=== PATIENT | male | born 1940 | race Caucasian/White ===

== ENCOUNTER 2018-05-24 12:24 | Inpatient (IN) | payer MEDICAID, MEDICARE ==
[~2018-05-24] VITALS: Ht 152.4 cm; Wt 54.0 kg
[2018-05-24 12:34] VITALS: BP_SYST 94
[2018-05-24] MEDS ORDERED: NACL 0.9% 1,000 ML IV ONE ×2 (12:45→15:45)
[2018-05-24 13:10] LABS: MEAN CORPUSCULAR VOLUME 88 fL (79.0-98.0)
[2018-05-24 13:17] LABS: BASOPHILS # (AUTO) 0.1 K/uL (0.0-0.2); BASOPHILS % (AUTO) 0.2 % (0.0-2.0); EOSINOPHILS % (AUTO) 0.1 % (0.0-4.0); HEMATOCRIT 38.6 % (36-54); LYMPHOCYTES # (AUTO) 1.6 K/uL (1.0-5.5); LYMPHOCYTES % (AUTO) 5.8 % (20.5-51.5); MEAN CORPUSCULAR HEMOGLOBIN 30 pg (27-31); MEAN CORPUSCULAR HGB CONC 34 % (32-36); MONOCYTES # (AUTO) 0.4 K/uL (0.0-1.0); MONOCYTES % (AUTO) 1.5 % (1.7-9.3); NEUTROPHILS # (AUTO) 24.8 K/uL (1.8-7.7); NEUTROPHILS % (AUTO) 92.4 % (40.0-70.0); PLATELET COUNT (AUTO) 338 K/uL (130-430); RED BLOOD CELL COUNT(AUTO) 4.37 MIL/uL (4.2-6.2); RED CELL DISTRIBUTION WIDTH 16.1 % (9.0-15.0); WHITE BLOOD COUNT (AUTO) 26.9 K/uL (4.8-10.8)
[2018-05-24 13:35] LABS: INR 1.1 (0.80-1.20); PROTHROMBIN TIME 11.2 SECS (9.5-12.5)
[2018-05-24 13:38] LABS: ANION GAP 11 (5-15); CALCIUM 9.7 mg/dL (8.4-11.0); CHLORIDE 109 mmol/L (98-107); CREATININE 1.67 mg/dL (0.55-1.30); GLUCOSE 125 mg/dL (70-99); POTASSIUM 4.8 mmol/L (3.5-5.1); SODIUM SERUM 142 mmol/L (136-145); UREA NITROGEN, BLOOD 83 mg/dL (8-21)
[2018-05-24 13:42] LABS: ALANINE AMINOTRANSFERASE 37 U/L (12-78); ALBUMIN 2.4 g/dL (3.4-4.8); ASPARTATE AMINOTRANSFERASE 26 U/L (10-37); TOTAL BILIRUBIN 1.1 mg/dL (0.0-1.0)
[2018-05-24] MEDS ORDERED: PIPERACILLIN/TAZO 3.375 GM in NS 50 ML IV ONE (15:15)
[2018-05-24] MEDS ORDERED: metroNIDAZOLE 500 mg/NS 100 ML IV ONE (15:15)
[2018-05-24] MEDS ORDERED: PIPERACILLIN/TAZOBACTAM 3.375 GM/VIAL (ZOSYN) IV ONE (16:09)
[2018-05-24 17:03] VITALS: BP_SYST 93
[2018-05-24] MEDS: metroNIDAZOLE 500 mg/NS 100 ML IV SCH ×2 (19:55→22:02)
[2018-05-24] MEDS: D5NS 1,000 ML IV SCH (19:55)
[2018-05-24 20:00] VITALS: BP_SYST 114
[2018-05-24] MEDS: PIPERACILLIN/TAZO 3.375/DEX-IS 50 ML IV SCH (23:48)
[2018-05-25 00:41] VITALS: BP_SYST 108
[2018-05-25 03:04] LABS: BILIRUBIN,URINE NEGATIVE (NEGATIVE); CLARITY/URINE CLEAR (CLEAR); COLOR,URINE YELLOW (YELLOW); GLUCOSE,URINE NEGATIVE (NEGATIVE); KETONES,URINE NEGATIVE (NEGATIVE); LEUKOCYTE ESTERASE ,URINE 2+ (NEGATIVE); NITRITE, URINE NEGATIVE (NEGATIVE); PH,URINE >=9.0 (5.0-8.0); PROTEIN URINE 1+ (NEGATIVE)
[2018-05-25 03:06] LABS: BLOOD, URINE TRACE (NEGATIVE)
[2018-05-25 03:24] LABS: BACTERIA,URINE MANY /HPF (None Seen); WBC,URINE 20-50 /HPF (0-3)
[2018-05-25 03:42] VITALS: BP_SYST 103
[2018-05-25] MEDS: D5NS 1,000 ML IV SCH ×2 (05:32→13:18)
[2018-05-25] MEDS: metroNIDAZOLE 500 mg/NS 100 ML IV SCH ×3 (05:33→22:09)
[2018-05-25] MEDS: PIPERACILLIN/TAZO 3.375/DEX-IS 50 ML IV SCH ×3 (05:33→17:28)
[2018-05-25 08:00] VITALS: BP_SYST 102
[2018-05-25 11:36] VITALS: BP_SYST 105
[2018-05-25 16:30] VITALS: BP_SYST 102
[2018-05-25 17:36] LABS: ANION GAP 8 (5-15); CALCIUM 9.1 mg/dL (8.4-11.0); CREATININE 0.88 mg/dL (0.55-1.30); GLUCOSE 119 mg/dL (70-99); POTASSIUM 3.3 mmol/L (3.5-5.1); SODIUM SERUM 151 mmol/L (136-145); UREA NITROGEN, BLOOD 57 mg/dL (8-21)
[2018-05-25 17:42] LABS: BASOPHILS % (AUTO) 0.3 % (0.0-2.0); EOSINOPHILS # (AUTO) 0.4 K/uL (0.0-0.4); HEMATOCRIT 30.3 % (36-54); HEMOGLOBIN 10.4 g/dL (14.0-18.0); LYMPHOCYTES # (AUTO) 0.7 K/uL (1.0-5.5); LYMPHOCYTES % (AUTO) 4.7 % (20.5-51.5); MEAN CORPUSCULAR HEMOGLOBIN 30 pg (27-31); MEAN CORPUSCULAR HGB CONC 34 % (32-36); MEAN CORPUSCULAR VOLUME 88 fL (79.0-98.0); MONOCYTES # (AUTO) 0.4 K/uL (0.0-1.0); MONOCYTES % (AUTO) 3.1 % (1.7-9.3); NEUTROPHILS % (AUTO) 88.9 % (40.0-70.0); PLATELET COUNT (AUTO) 244 K/uL (130-430); RED BLOOD CELL COUNT(AUTO) 3.43 MIL/uL (4.2-6.2); RED CELL DISTRIBUTION WIDTH 15.8 % (9.0-15.0); WHITE BLOOD COUNT (AUTO) 14.5 K/uL (4.8-10.8)
[2018-05-25 17:50] LABS: CHLORIDE 122 mmol/L (98-107)
[2018-05-25 18:09] LABS: ASPARTATE AMINOTRANSFERASE 17 U/L (10-37); TOTAL BILIRUBIN 0.6 mg/dL (0.0-1.0)
[2018-05-25 18:10] LABS: ALANINE AMINOTRANSFERASE 27 U/L (12-78); ALBUMIN 1.9 g/dL (3.4-4.8)
[2018-05-25] MEDS: D5W 1,000 ML IV SCH (18:43)
[2018-05-25 20:00] VITALS: BP_SYST 102
[2018-05-26] VITALS: BP_SYST 123
[2018-05-26] MEDS: PIPERACILLIN/TAZO 3.375/DEX-IS 50 ML IV SCH ×5 (00:09→23:16)
[2018-05-26] MEDS: metroNIDAZOLE 500 mg/NS 100 ML IV SCH ×3 (06:13→21:10)
[2018-05-26 06:30] LABS: BASOPHILS # (AUTO) 0.1 K/uL (0.0-0.2); BASOPHILS % (AUTO) 0.6 % (0.0-2.0); EOSINOPHILS # (AUTO) 0.9 K/uL (0.0-0.4); HEMATOCRIT 31.1 % (36-54); HEMOGLOBIN 10.5 g/dL (14.0-18.0); LYMPHOCYTES # (AUTO) 0.5 K/uL (1.0-5.5); LYMPHOCYTES % (AUTO) 4.2 % (20.5-51.5); MEAN CORPUSCULAR HEMOGLOBIN 30 pg (27-31); MEAN CORPUSCULAR HGB CONC 34 % (32-36); MEAN CORPUSCULAR VOLUME 89 fL (79.0-98.0); MONOCYTES # (AUTO) 0.6 K/uL (0.0-1.0); MONOCYTES % (AUTO) 4.9 % (1.7-9.3); NEUTROPHILS # (AUTO) 9.3 K/uL (1.8-7.7); NEUTROPHILS % (AUTO) 82.3 % (40.0-70.0); PLATELET COUNT (AUTO) 242 K/uL (130-430); RED BLOOD CELL COUNT(AUTO) 3.51 MIL/uL (4.2-6.2); RED CELL DISTRIBUTION WIDTH 16.4 % (9.0-15.0); WHITE BLOOD COUNT (AUTO) 11.4 K/uL (4.8-10.8)
[2018-05-26 07:12] LABS: ALANINE AMINOTRANSFERASE 26 U/L (12-78); ALBUMIN 1.9 g/dL (3.4-4.8); ANION GAP 7 (5-15); ASPARTATE AMINOTRANSFERASE 17 U/L (10-37); CALCIUM 9.1 mg/dL (8.4-11.0); CREATININE 0.73 mg/dL (0.55-1.30); GLUCOSE 109 mg/dL (70-99); SODIUM SERUM 150 mmol/L (136-145); TOTAL BILIRUBIN 0.5 mg/dL (0.0-1.0); UREA NITROGEN, BLOOD 37 mg/dL (8-21)
[2018-05-26 07:16] LABS: CHLORIDE 123 mmol/L (98-107); POTASSIUM 2.9 mmol/L (3.5-5.1)
[2018-05-26 08:00] VITALS: BP_SYST 114
[2018-05-26] MEDS ORDERED: POTASSIUM CHLORIDE 40 MEQ, LIDOCAINE JECT 2% PF 100 MG 75 MG in NS 250 ML IV ONE (08:45)
[2018-05-26 12:40] VITALS: BP_SYST 106
[2018-05-26 16:35] VITALS: BP_SYST 110
[2018-05-26] MEDS ORDERED: BALSAM PERU/CASTOR OIL 60 GM OINT...G. TP ONE (17:00)
[2018-05-26 20:00] VITALS: BP_SYST 124
[2018-05-26] MEDS: D5W 1,000 ML IV SCH ×2 (23:06→23:16)
[2018-05-27] VITALS: BP_SYST 122
[2018-05-27] MEDS ORDERED: VITD2000 GT (01:43)
[2018-05-27] MEDS ORDERED: METO5TAB86 GT (01:43)
[2018-05-27] MEDS ORDERED: FINA5TAB3 GT (01:43)
[2018-05-27] MEDS ORDERED: SOTA80TA GT (01:43)
[2018-05-27] MEDS ORDERED: POLY17PO4 GT (01:43)
[2018-05-27] MEDS ORDERED: LACT10SO7 GT (01:43)
[2018-05-27] MEDS ORDERED: ACET-2165 GT ×2 (01:43)
[2018-05-27] MEDS ORDERED: TAMS-11 GT (01:43)
[2018-05-27] MEDS: PIPERACILLIN/TAZO 3.375/DEX-IS 50 ML IV SCH ×3 (05:17→18:30)
[2018-05-27] MEDS: metroNIDAZOLE 500 mg/NS 100 ML IV SCH ×3 (05:44→21:58)
[2018-05-27 08:10] VITALS: BP_SYST 121
[2018-05-27] MEDS: BALSAM PERU/CASTOR OIL 60 GM OINT...G. TP SCH (10:08)
[2018-05-27 12:37] VITALS: BP_SYST 147
[2018-05-27] MEDS: D5W 1,000 ML IV SCH (14:28)
[2018-05-27 16:29] VITALS: BP_SYST 139
[2018-05-27 16:39] LABS: BASOPHILS % (AUTO) 0.5 % (0.0-2.0); EOSINOPHILS # (AUTO) 0.5 K/uL (0.0-0.4); HEMATOCRIT 31.8 % (36-54); HEMOGLOBIN 10.6 g/dL (14.0-18.0); LYMPHOCYTES # (AUTO) 1.1 K/uL (1.0-5.5); LYMPHOCYTES % (AUTO) 17.2 % (20.5-51.5); MEAN CORPUSCULAR HEMOGLOBIN 29 pg (27-31); MEAN CORPUSCULAR HGB CONC 33 % (32-36); MEAN CORPUSCULAR VOLUME 88 fL (79.0-98.0); MONOCYTES # (AUTO) 0.5 K/uL (0.0-1.0); MONOCYTES % (AUTO) 8.2 % (1.7-9.3); NEUTROPHILS # (AUTO) 4.4 K/uL (1.8-7.7); NEUTROPHILS % (AUTO) 67.1 % (40.0-70.0); PLATELET COUNT (AUTO) 232 K/uL (130-430); RED CELL DISTRIBUTION WIDTH 15.9 % (9.0-15.0); WHITE BLOOD COUNT (AUTO) 6.5 K/uL (4.8-10.8)
[2018-05-27 16:53] LABS: ANION GAP 9 (5-15); CALCIUM 8.6 mg/dL (8.4-11.0); CHLORIDE 118 mmol/L (98-107); CREATININE 0.58 mg/dL (0.55-1.30); GLUCOSE 90 mg/dL (70-99); POTASSIUM 3.2 mmol/L (3.5-5.1); SODIUM SERUM 148 mmol/L (136-145); UREA NITROGEN, BLOOD 18 mg/dL (8-21)
[2018-05-27 16:58] LABS: ALANINE AMINOTRANSFERASE 18 U/L (12-78); ASPARTATE AMINOTRANSFERASE 12 U/L (10-37); TOTAL BILIRUBIN 0.6 mg/dL (0.0-1.0)
[2018-05-27 21:26] VITALS: BP_SYST 134
[2018-05-27] MEDS: MUPIROCIN NASAL 2% OINT. NS SCH (21:59)
[2018-05-28] MEDS: PIPERACILLIN/TAZO 3.375/DEX-IS 50 ML IV SCH ×4 (00:18→17:14)
[2018-05-28] MEDS: D5W 1,000 ML IV SCH ×2 (00:20→11:13)
[2018-05-28 00:50] VITALS: BP_SYST 143
[2018-05-28] MEDS: metroNIDAZOLE 500 mg/NS 100 ML IV SCH ×2 (06:27→13:16)
[2018-05-28 09:21] VITALS: BP_SYST 123
[2018-05-28] MEDS: MUPIROCIN NASAL 2% OINT. NS SCH ×2 (09:25→21:38)
[2018-05-28] MEDS: BALSAM PERU/CASTOR OIL 60 GM OINT...G. TP SCH (09:26)
[2018-05-28 12:10] VITALS: BP_SYST 140
[2018-05-28 16:10] VITALS: BP_SYST 132
[2018-05-28 20:00] VITALS: BP_SYST 111
[2018-05-28] MEDS ORDERED: CEFEPIME 1 GM/VIAL (MAXIPIME) ONE (22:33)
[2018-05-28] MEDS: CEFEPIME 1 GM in D5W 50 ML IV SCH (22:34)
[2018-05-29] MEDS ORDERED: VANCOMYCIN HCL 1000 MG/VIAL IV ONE (00:11)
[2018-05-29 00:35] VITALS: BP_SYST 107
[2018-05-29] MEDS ORDERED: VANCOMYCIN HCL 1,000 MG in D5W 250 ML IV ONE (01:00)
[2018-05-29] MEDS: D5W 1,000 ML IV SCH ×2 (04:24→19:34)
[2018-05-29 08:00] VITALS: BP_SYST 138
[2018-05-29] MEDS: CEFEPIME 1 GM in D5W 50 ML IV SCH ×2 (09:00→20:33)
[2018-05-29] MEDS: MUPIROCIN NASAL 2% OINT. NS SCH (09:00)
[2018-05-29] MEDS: BALSAM PERU/CASTOR OIL 60 GM OINT...G. TP SCH (09:01)
[2018-05-29 12:00] VITALS: BP_SYST 142
[2018-05-29] MEDS ORDERED: POTASSIUM CHLORIDE 20 MEQ/PKT PACKET PO ONE (14:45)
[2018-05-29] MEDS ORDERED: POTASSIUM CHLORIDE 20 MEQ/PKT PACKET GT ONE (15:00)
[2018-05-29 16:00] VITALS: BP_SYST 110
[2018-05-29 20:00] VITALS: BP_SYST 118
[2018-05-29] MEDS: POTASSIUM CHLORIDE 20 MEQ/PKT PACKET GT SCH (20:33)
[2018-05-29] MEDS: MUPIROCIN 2% TOPICAL OINTMENT 22 GM TP SCH (20:34)
[2018-05-29] MEDS ORDERED: POTASSIUM CHLORIDE 20 MEQ/PKT PACKET PO SCH (21:00)
[2018-05-30 00:25] VITALS: BP_SYST 119
[2018-05-30] MEDS: VANCOMYCIN HCL 1,000 MG in NS 250 ML IV SCH (01:46)
[2018-05-30 06:40] LABS: BASOPHILS % (AUTO) 0.3 % (0.0-2.0); EOSINOPHILS # (AUTO) 0.6 K/uL (0.0-0.4); EOSINOPHILS % (AUTO) 5.7 % (0.0-4.0); HEMOGLOBIN 10.6 g/dL (14.0-18.0); LYMPHOCYTES # (AUTO) 2.3 K/uL (1.0-5.5); LYMPHOCYTES % (AUTO) 23.3 % (20.5-51.5); MEAN CORPUSCULAR HEMOGLOBIN 30 pg (27-31); MEAN CORPUSCULAR HGB CONC 34 % (32-36); MEAN CORPUSCULAR VOLUME 87 fL (79.0-98.0); MONOCYTES # (AUTO) 0.8 K/uL (0.0-1.0); MONOCYTES % (AUTO) 8.1 % (1.7-9.3); NEUTROPHILS # (AUTO) 6.2 K/uL (1.8-7.7); NEUTROPHILS % (AUTO) 62.6 % (40.0-70.0); PLATELET COUNT (AUTO) 224 K/uL (130-430); RED BLOOD CELL COUNT(AUTO) 3.55 MIL/uL (4.2-6.2); RED CELL DISTRIBUTION WIDTH 15.3 % (9.0-15.0); WHITE BLOOD COUNT (AUTO) 9.9 K/uL (4.8-10.8)
[2018-05-30 07:02] LABS: ANION GAP 8 (5-15); CALCIUM 8.3 mg/dL (8.4-11.0); CHLORIDE 106 mmol/L (98-107); CREATININE 0.44 mg/dL (0.55-1.30); GLUCOSE 115 mg/dL (70-99); POTASSIUM 3.3 mmol/L (3.5-5.1); SODIUM SERUM 137 mmol/L (136-145); UREA NITROGEN, BLOOD 13 mg/dL (8-21)
[2018-05-30 08:00] VITALS: BP_SYST 124
[2018-05-30] MEDS: POTASSIUM CHLORIDE 20 MEQ/PKT PACKET GT SCH ×2 (10:05→20:37)
[2018-05-30] MEDS: CEFEPIME 1 GM in D5W 50 ML IV SCH ×2 (10:06→20:37)
[2018-05-30] MEDS: MUPIROCIN 2% TOPICAL OINTMENT 22 GM TP SCH ×2 (10:06→20:37)
[2018-05-30] MEDS: BALSAM PERU/CASTOR OIL 60 GM OINT...G. TP SCH (10:07)
[2018-05-30 12:00] VITALS: BP_SYST 128
[2018-05-30] MEDS: D5W 1,000 ML IV SCH (13:16)
[2018-05-30 16:00] VITALS: BP_SYST 122
[2018-05-30 20:00] VITALS: BP_SYST 109
[2018-05-31] MEDS: VANCOMYCIN HCL 1,000 MG in NS 250 ML IV SCH (00:10)
[2018-05-31 00:11] VITALS: BP_SYST 124
[2018-05-31] MEDS: D5W 1,000 ML IV SCH ×2 (03:29→17:27)
[2018-05-31 06:49] LABS: ANION GAP 4 (5-15); CALCIUM 8.2 mg/dL (8.4-11.0); CHLORIDE 105 mmol/L (98-107); CREATININE 0.47 mg/dL (0.55-1.30); GLUCOSE 114 mg/dL (70-99); POTASSIUM 3.7 mmol/L (3.5-5.1); SODIUM SERUM 135 mmol/L (136-145); UREA NITROGEN, BLOOD 16 mg/dL (8-21)
[2018-05-31 08:32] VITALS: BP_SYST 123
[2018-05-31] MEDS: BALSAM PERU/CASTOR OIL 60 GM OINT...G. TP SCH (08:37)
[2018-05-31] MEDS: MUPIROCIN 2% TOPICAL OINTMENT 22 GM TP SCH ×2 (08:37→20:23)
[2018-05-31] MEDS: POTASSIUM CHLORIDE 20 MEQ/PKT PACKET GT SCH ×2 (08:37→20:22)
[2018-05-31] MEDS: CEFEPIME 1 GM in D5W 50 ML IV SCH ×2 (08:38→20:22)
[2018-05-31 12:00] VITALS: BP_SYST 129
[2018-05-31 20:00] VITALS: BP_SYST 135
[2018-06-01] MEDS: VANCOMYCIN HCL 1,000 MG in NS 250 ML IV SCH ×2 (00:19→14:39)
[2018-06-01 00:52] VITALS: BP_SYST 130
[2018-06-01 06:18] LABS: ANION GAP 6 (5-15); CALCIUM 8.5 mg/dL (8.4-11.0); CHLORIDE 103 mmol/L (98-107); CREATININE 0.46 mg/dL (0.55-1.30); GLUCOSE 127 mg/dL (70-99); POTASSIUM 3.6 mmol/L (3.5-5.1); SODIUM SERUM 135 mmol/L (136-145); UREA NITROGEN, BLOOD 16 mg/dL (8-21)
[2018-06-01] MEDS: POTASSIUM CHLORIDE 20 MEQ/PKT PACKET GT SCH ×2 (09:32→20:56)
[2018-06-01] MEDS: MUPIROCIN 2% TOPICAL OINTMENT 22 GM TP SCH ×2 (09:32→20:56)
[2018-06-01] MEDS: D5W 1,000 ML IV SCH ×2 (09:33→22:06)
[2018-06-01] MEDS: BALSAM PERU/CASTOR OIL 60 GM OINT...G. TP SCH (09:33)
[2018-06-01] MEDS: CEFEPIME 1 GM in D5W 50 ML IV SCH ×2 (11:02→20:56)
[2018-06-01 12:33] VITALS: BP_SYST 112
[2018-06-01 16:14] VITALS: BP_SYST 121
[2018-06-02 00:16] VITALS: BP_SYST 129
[2018-06-02] MEDS: VANCOMYCIN HCL 1,000 MG in NS 250 ML IV SCH (00:45)
[2018-06-02] MEDS: D5W 1,000 ML IV SCH (00:46)
[2018-06-02 08:44] VITALS: BP_SYST 132
[2018-06-02] MEDS: POTASSIUM CHLORIDE 20 MEQ/PKT PACKET GT SCH (09:43)
[2018-06-02] MEDS: CEFEPIME 1 GM in D5W 50 ML IV SCH (09:44)
[2018-06-02 12:58] VITALS: BP_SYST 122
[2018-06-02 16:48] VITALS: BP_SYST 139
[2018-06-02] MEDS: BALSAM PERU/CASTOR OIL 60 GM OINT...G. TP SCH (18:00)
[2018-06-02 18:48] VITALS: BP_SYST 139
== END 2018-06-02 19:38 | DRG 720 ==
LOC: SED 12:24 → STU 16:47 → SMU 05-30 15:29
PROVIDERS: ADMIT Internal Medicine Hospice and Palliative Medicine; ATTEND Internal Medicine Hospice and Palliative Medicine
DX: A41.9 Sepsis, unspecified organism (principal); N17.0 Acute kidney failure with tubular necrosis; E43 Unspecified severe protein-calorie malnutrition; E87.0 Hyperosmolality and hypernatremia; N39.0 Urinary tract infection, site not specified; I48.91 Unspecified atrial fibrillation; E87.6 Hypokalemia; K21.9 Gastro-esophageal reflux disease without esophagitis; I10 Essential (primary) hypertension; F79 Unspecified intellectual disabilities; G80.9 Cerebral palsy, unspecified; Z22.322 Carrier or suspected carrier of Methicillin resistant Staphylococcus aureus; Z74.01 Bed confinement status; Z68.23 Body mass index [BMI] 23.0-23.9, adult; Z79.2 Long term (current) use of antibiotics; Z79.899 Other long term (current) drug therapy; Z93.1 Gastrostomy status; Z79.01 Long term (current) use of anticoagulants; Z93.2 Ileostomy status
CPT/HCPCS: 36415; 71045; 80048; 80053; 80202-TC; 81000-TC; 83605; 83735-TC; 83880; 84484; 85025; 85610-TC; 85730-TC; 87040-TC; 87081; 87086; 93005; 96361; 96365; 96367; 99285; A5061; A9547; J0692; J2543; J3370; J3480; J3490; J7030; J7042; J7050; J7060

== ENCOUNTER 2018-06-12 01:38 | Inpatient (IN) | payer MEDICAID, MEDICARE ==
[~2018-06-12] VITALS: Ht 152.4 cm; Wt 49.9 kg
[~2018-06-12 01:38] MED LIST: ACET-2165 GT; FINA5TAB3 GT; LACT10SO7 GT; METO5TAB86 GT; POLY17PO4 GT; SOTA80TA GT; TAMS-11 GT; VITD2000 GT
[2018-06-12] MEDS ORDERED: NACL 0.9% 1,000 ML IV ONE (01:44)
[2018-06-12] MEDS ORDERED: NS 1000 ML IV.SOLN IV ONE (01:45)
[2018-06-12 01:46] VITALS: BP_SYST 121
[2018-06-12 02:13] LABS: BASOPHILS # (AUTO) 0.1 K/uL (0.0-0.2); BASOPHILS % (AUTO) 0.6 % (0.0-2.0); EOSINOPHILS # (AUTO) 0.7 K/uL (0.0-0.4); EOSINOPHILS % (AUTO) 8.7 % (0.0-4.0); HEMATOCRIT 31.8 % (36-54); HEMOGLOBIN 10.8 g/dL (14.0-18.0); LYMPHOCYTES % (AUTO) 12.4 % (20.5-51.5); MEAN CORPUSCULAR HEMOGLOBIN 30 pg (27-31); MEAN CORPUSCULAR HGB CONC 34 % (32-36); MEAN CORPUSCULAR VOLUME 89 fL (79.0-98.0); MONOCYTES # (AUTO) 0.8 K/uL (0.0-1.0); MONOCYTES % (AUTO) 9.6 % (1.7-9.3); NEUTROPHILS # (AUTO) 5.8 K/uL (1.8-7.7); NEUTROPHILS % (AUTO) 68.7 % (40.0-70.0); PLATELET COUNT (AUTO) 234 K/uL (130-430); RED CELL DISTRIBUTION WIDTH 16.2 % (9.0-15.0); WHITE BLOOD COUNT (AUTO) 8.4 K/uL (4.8-10.8)
[2018-06-12 02:38] LABS: ANION GAP 8 (5-15); CALCIUM 9.6 mg/dL (8.4-11.0); CHLORIDE 104 mmol/L (98-107); CREATININE 0.55 mg/dL (0.55-1.30); GLUCOSE 118 mg/dL (70-99); POTASSIUM 3.9 mmol/L (3.5-5.1); SODIUM SERUM 137 mmol/L (136-145); UREA NITROGEN, BLOOD 51 mg/dL (8-21)
[2018-06-12 02:47] LABS: PROTHROMBIN TIME 10.3 SECS (9.5-12.5)
[2018-06-12 02:56] LABS: ALANINE AMINOTRANSFERASE 33 U/L (12-78); ALBUMIN 2.1 g/dL (3.4-4.8); ASPARTATE AMINOTRANSFERASE 23 U/L (10-37); LIPASE 100 U/L (73-393); TOTAL BILIRUBIN 0.3 mg/dL (0.0-1.0)
[2018-06-12 03:04] LABS: BILIRUBIN,URINE NEGATIVE (NEGATIVE); BLOOD, URINE 2+ (NEGATIVE); CLARITY/URINE CLOUDY (CLEAR); COLOR,URINE YELLOW (YELLOW); GLUCOSE,URINE NEGATIVE (NEGATIVE); KETONES,URINE NEGATIVE (NEGATIVE); LEUKOCYTE ESTERASE ,URINE 3+ (NEGATIVE); NITRITE, URINE NEGATIVE (NEGATIVE); PROTEIN URINE 1+ (NEGATIVE); UROBILINOGEN,URINE 0.2 (0.2-1.0)
[2018-06-12 03:13] LABS: BACTERIA,URINE MODERATE /HPF (None Seen); MUCUS,URINE None Seen /LPF (None Seen); WBC,URINE >100 /HPF (0-3); YEAST,URINE Moderate /HPF (None Seen)
[2018-06-12 03:14] LABS: COARSE GRANULAR CASTS,URINE 0-10 /LPF (None Seen)
[2018-06-12 07:08] VITALS: BP_SYST 144
[2018-06-12 08:04] VITALS: BP_SYST 116
[2018-06-12] MEDS: CEFEPIME 1 GM in D5W 50 ML IV SCH ×2 (09:49→21:37)
[2018-06-12] MEDS: KCL 20 mEq in D5/0.45NS 1000mL 1,000 ML IV SCH ×2 (09:49→18:50)
[2018-06-12 12:00] VITALS: BP_SYST 118
[2018-06-12] MEDS ORDERED: ACETAMINOPHEN 325 MG TABLET GT PRN (14:30)
[2018-06-12 16:55] VITALS: BP_SYST 113
[2018-06-12 19:30] VITALS: BP_SYST 135
[2018-06-12] MEDS: ENOXAPARIN SODIUM 30 MG/0.3 ML SYRINGE SUBCUT SCH (21:35)
[2018-06-12] MEDS: CHOLECALCIFEROL (VITAMIN D3) 2,000 UNIT TABLET GT SCH (21:37)
[2018-06-12] MEDS: SOTALOL HCL 80 MG TABLET GT SCH (21:38)
[2018-06-13 00:03] VITALS: BP_SYST 112
[2018-06-13] MEDS: KCL 20 mEq in D5/0.45NS 1000mL 1,000 ML IV SCH ×2 (05:44→14:45)
[2018-06-13 06:57] LABS: BASOPHILS # (AUTO) 0.1 K/uL (0.0-0.2); BASOPHILS % (AUTO) 0.9 % (0.0-2.0); EOSINOPHILS # (AUTO) 0.4 K/uL (0.0-0.4); EOSINOPHILS % (AUTO) 7.8 % (0.0-4.0); HEMATOCRIT 26.9 % (36-54); HEMOGLOBIN 9.1 g/dL (14.0-18.0); LYMPHOCYTES # (AUTO) 1.5 K/uL (1.0-5.5); LYMPHOCYTES % (AUTO) 26.1 % (20.5-51.5); MEAN CORPUSCULAR HEMOGLOBIN 30 pg (27-31); MEAN CORPUSCULAR HGB CONC 34 % (32-36); MEAN CORPUSCULAR VOLUME 89 fL (79.0-98.0); MONOCYTES # (AUTO) 0.7 K/uL (0.0-1.0); MONOCYTES % (AUTO) 11.9 % (1.7-9.3); NEUTROPHILS # (AUTO) 2.9 K/uL (1.8-7.7); NEUTROPHILS % (AUTO) 53.3 % (40.0-70.0); PLATELET COUNT (AUTO) 200 K/uL (130-430); RED BLOOD CELL COUNT(AUTO) 3.02 MIL/uL (4.2-6.2); RED CELL DISTRIBUTION WIDTH 15.6 % (9.0-15.0)
[2018-06-13 07:09] LABS: ANION GAP 6 (5-15); CHLORIDE 108 mmol/L (98-107); CREATININE 0.38 mg/dL (0.55-1.30); GLUCOSE 109 mg/dL (70-99); POTASSIUM 3.9 mmol/L (3.5-5.1); SODIUM SERUM 138 mmol/L (136-145); UREA NITROGEN, BLOOD 23 mg/dL (8-21)
[2018-06-13 07:30] LABS: WHITE BLOOD COUNT (AUTO) 5.6 K/uL (4.8-10.8)
[2018-06-13 08:00] VITALS: BP_SYST 110
[2018-06-13] MEDS: SOTALOL HCL 80 MG TABLET GT SCH ×2 (09:00→21:03)
[2018-06-13] MEDS: CHOLECALCIFEROL (VITAMIN D3) 2,000 UNIT TABLET GT SCH ×2 (09:29→21:03)
[2018-06-13] MEDS: POLYETHYLENE GLYCOL 3350, 17 GM/ POWD.PACK GT SCH (09:29)
[2018-06-13] MEDS: FINASTERIDE 5 MG TABLET (PROSCAR) GT SCH (09:30)
[2018-06-13] MEDS: ACETAMINOPHEN 325 MG TABLET GT SCH (09:30)
[2018-06-13] MEDS: CEFEPIME 1 GM in D5W 50 ML IV SCH ×2 (09:32→21:03)
[2018-06-13 12:41] VITALS: BP_SYST 119
[2018-06-13 16:19] VITALS: BP_SYST 110
[2018-06-13 19:30] VITALS: BP_SYST 126
[2018-06-13] MEDS: ENOXAPARIN SODIUM 30 MG/0.3 ML SYRINGE SUBCUT SCH (21:02)
[2018-06-14] VITALS: BP_SYST 115
[2018-06-14 07:12] LABS: BASOPHILS # (AUTO) 0.1 K/uL (0.0-0.2); EOSINOPHILS # (AUTO) 0.5 K/uL (0.0-0.4); EOSINOPHILS % (AUTO) 8.4 % (0.0-4.0); HEMATOCRIT 27.5 % (36-54); HEMOGLOBIN 9.1 g/dL (14.0-18.0); LYMPHOCYTES # (AUTO) 1.6 K/uL (1.0-5.5); LYMPHOCYTES % (AUTO) 28.7 % (20.5-51.5); MEAN CORPUSCULAR HEMOGLOBIN 29 pg (27-31); MEAN CORPUSCULAR HGB CONC 33 % (32-36); MEAN CORPUSCULAR VOLUME 89 fL (79.0-98.0); MONOCYTES # (AUTO) 0.6 K/uL (0.0-1.0); NEUTROPHILS # (AUTO) 2.7 K/uL (1.8-7.7); NEUTROPHILS % (AUTO) 49.8 % (40.0-70.0); PLATELET COUNT (AUTO) 222 K/uL (130-430); RED BLOOD CELL COUNT(AUTO) 3.09 MIL/uL (4.2-6.2); RED CELL DISTRIBUTION WIDTH 15.8 % (9.0-15.0); WHITE BLOOD COUNT (AUTO) 5.5 K/uL (4.8-10.8)
[2018-06-14 07:33] LABS: ANION GAP 6 (5-15); CALCIUM 8.8 mg/dL (8.4-11.0); CHLORIDE 104 mmol/L (98-107); CREATININE 0.32 mg/dL (0.55-1.30); GLUCOSE 103 mg/dL (70-99); POTASSIUM 4.1 mmol/L (3.5-5.1); SODIUM SERUM 135 mmol/L (136-145); UREA NITROGEN, BLOOD 17 mg/dL (8-21)
[2018-06-14 08:00] VITALS: BP_SYST 110
[2018-06-14] MEDS: ACETAMINOPHEN 325 MG TABLET GT SCH (08:36)
[2018-06-14] MEDS: CHOLECALCIFEROL (VITAMIN D3) 2,000 UNIT TABLET GT SCH ×2 (08:36→21:00)
[2018-06-14] MEDS: FINASTERIDE 5 MG TABLET (PROSCAR) GT SCH (08:36)
[2018-06-14] MEDS: POLYETHYLENE GLYCOL 3350, 17 GM/ POWD.PACK GT SCH (08:36)
[2018-06-14] MEDS: CEFEPIME 1 GM in D5W 50 ML IV SCH ×2 (08:37→21:00)
[2018-06-14] MEDS: SOTALOL HCL 80 MG TABLET GT SCH ×2 (08:37→21:00)
[2018-06-14 09:52] LABS: BASOPHILS % (AUTO) 2.1 % (0.0-2.0)
[2018-06-14] MEDS: KCL 20 mEq in D5/0.45NS 1000mL 1,000 ML IV SCH (11:00)
[2018-06-14 13:01] VITALS: BP_SYST 144
[2018-06-14 16:42] VITALS: BP_SYST 125
[2018-06-14 19:35] VITALS: BP_SYST 119
[2018-06-14] MEDS: ENOXAPARIN SODIUM 30 MG/0.3 ML SYRINGE SUBCUT SCH (21:02)
[2018-06-15 00:22] VITALS: BP_SYST 117
[2018-06-15] MEDS: KCL 20 mEq in D5/0.45NS 1000mL 1,000 ML IV SCH ×2 (04:43→18:19)
[2018-06-15 08:00] VITALS: BP_SYST 124
[2018-06-15] MEDS: CEFEPIME 1 GM in D5W 50 ML IV SCH ×2 (10:26→21:31)
[2018-06-15] MEDS: FINASTERIDE 5 MG TABLET (PROSCAR) GT SCH (10:26)
[2018-06-15] MEDS: SOTALOL HCL 80 MG TABLET GT SCH ×2 (10:27→21:35)
[2018-06-15] MEDS: POLYETHYLENE GLYCOL 3350, 17 GM/ POWD.PACK GT SCH (10:28)
[2018-06-15] MEDS: ACETAMINOPHEN 325 MG TABLET GT SCH (10:28)
[2018-06-15] MEDS: CHOLECALCIFEROL (VITAMIN D3) 2,000 UNIT TABLET GT SCH ×2 (10:29→21:36)
[2018-06-15 12:00] VITALS: BP_SYST 117
[2018-06-15 16:21] VITALS: BP_SYST 117
[2018-06-15] MEDS: FLUCONAZOLE 100 mg/ NS 50 ML IV SCH (19:48)
[2018-06-15 20:00] VITALS: BP_SYST 158
[2018-06-15] MEDS: ENOXAPARIN SODIUM 30 MG/0.3 ML SYRINGE SUBCUT SCH (21:34)
[2018-06-15] MEDS: ACYCLOVIR 400 MG TABLET PO SCH (21:35)
[2018-06-16 00:38] VITALS: BP_SYST 135
[2018-06-16 07:01] LABS: BASOPHILS # (AUTO) 0.1 K/uL (0.0-0.2); BASOPHILS % (AUTO) 0.9 % (0.0-2.0); EOSINOPHILS # (AUTO) 0.6 K/uL (0.0-0.4); EOSINOPHILS % (AUTO) 6.6 % (0.0-4.0); HEMATOCRIT 28.7 % (36-54); HEMOGLOBIN 9.9 g/dL (14.0-18.0); LYMPHOCYTES # (AUTO) 1.8 K/uL (1.0-5.5); LYMPHOCYTES % (AUTO) 20.5 % (20.5-51.5); MEAN CORPUSCULAR HEMOGLOBIN 30 pg (27-31); MEAN CORPUSCULAR HGB CONC 34 % (32-36); MEAN CORPUSCULAR VOLUME 88 fL (79.0-98.0); MONOCYTES # (AUTO) 0.7 K/uL (0.0-1.0); MONOCYTES % (AUTO) 7.9 % (1.7-9.3); NEUTROPHILS # (AUTO) 5.5 K/uL (1.8-7.7); NEUTROPHILS % (AUTO) 64.1 % (40.0-70.0); PLATELET COUNT (AUTO) 242 K/uL (130-430); RED BLOOD CELL COUNT(AUTO) 3.26 MIL/uL (4.2-6.2); RED CELL DISTRIBUTION WIDTH 15.6 % (9.0-15.0); WHITE BLOOD COUNT (AUTO) 8.7 K/uL (4.8-10.8)
[2018-06-16 07:16] LABS: ANION GAP 3 (5-15); CALCIUM 9.1 mg/dL (8.4-11.0); CHLORIDE 101 mmol/L (98-107); CREATININE 0.37 mg/dL (0.55-1.30); GLUCOSE 117 mg/dL (70-99); SODIUM SERUM 132 mmol/L (136-145); UREA NITROGEN, BLOOD 14 mg/dL (8-21)
[2018-06-16 08:06] VITALS: BP_SYST 144
[2018-06-16] MEDS ORDERED: BALSAM PERU/CASTOR OIL 60 GM OINT...G. TP SCH (09:00)
[2018-06-16] MEDS: CEFEPIME 1 GM in D5W 50 ML IV SCH (09:59)
[2018-06-16] MEDS: FINASTERIDE 5 MG TABLET (PROSCAR) GT SCH (10:00)
[2018-06-16] MEDS: CHOLECALCIFEROL (VITAMIN D3) 2,000 UNIT TABLET GT SCH (10:00)
[2018-06-16] MEDS: POLYETHYLENE GLYCOL 3350, 17 GM/ POWD.PACK GT SCH (10:00)
[2018-06-16] MEDS: ACYCLOVIR 400 MG TABLET PO SCH (10:00)
[2018-06-16] MEDS: ACETAMINOPHEN 325 MG TABLET GT SCH (10:01)
[2018-06-16] MEDS: SOTALOL HCL 80 MG TABLET GT SCH (10:01)
[2018-06-16] MEDS: KCL 20 mEq in D5/0.45NS 1000mL 1,000 ML IV SCH (10:02)
[2018-06-16 12:53] VITALS: BP_SYST 108
[2018-06-16 16:37] VITALS: BP_SYST 121
[2018-06-16 17:51] VITALS: BP_SYST 121
[2018-06-16] MEDS: FLUCONAZOLE 100 mg/ NS 50 ML IV SCH (18:20)
== END 2018-06-16 19:45 | DRG 501 ==
LOC: SED 01:38 → STU 05:26
PROVIDERS: ADMIT Family Medicine; ATTEND Family Medicine
DX: B37.49 Other urogenital candidiasis (principal); J69.0 Pneumonitis due to inhalation of food and vomit; E43 Unspecified severe protein-calorie malnutrition; J44.9 Chronic obstructive pulmonary disease, unspecified; E86.0 Dehydration; I48.91 Unspecified atrial fibrillation; F03.90 Unspecified dementia, unspecified severity, without behavioral disturbance, psychotic disturbance, mood disturbance, and anxiety; N31.9 Neuromuscular dysfunction of bladder, unspecified; F79 Unspecified intellectual disabilities; R09.02 Hypoxemia; K21.9 Gastro-esophageal reflux disease without esophagitis; D64.9 Anemia, unspecified; I10 Essential (primary) hypertension; B00.2 Herpesviral gingivostomatitis and pharyngotonsillitis; N40.0 Benign prostatic hyperplasia without lower urinary tract symptoms; Z87.440 Personal history of urinary (tract) infections; Z68.21 Body mass index [BMI] 21.0-21.9, adult; Z79.899 Other long term (current) drug therapy; Z93.1 Gastrostomy status
CPT/HCPCS: 36415; 71045; 80048; 80053; 81000-TC; 82550-TC; 83605; 83690-TC; 84484; 85025; 85610-TC; 85730-TC; 87040-TC; 87081; 87086; 93005; 96360; 96361; 99285; A5061; J0692; J1450; J1650; J7030; J7060

== ENCOUNTER 2018-06-27 22:14 | Inpatient (IN) | payer MEDICAID, MEDICARE ==
[~2018-06-27] VITALS: Ht 175.3 cm; Wt 52.6 kg
[2018-06-27 22:15] VITALS: BP_SYST 93
--- NOTE | 2018-06-27 22:15 | NUR ---
Placed in room 02 . Placed on car sweeper, blood pressure machine and pulse oximeter. To gown for exam. Side rails up. Report given to BARRON Trevino.
--- NOTE | 2018-06-27 22:15 | NUR ---
Patient brought to ED via [facility] [address] [facility]. Facility contacted EMS due to desaturation. SpO2 80% on scene. Patient placed on non-rebreather en route to facility. Patient non-verbal, tracks with eyes. SpO2 in ED 95% on 15L via non-rebreather. Presents with 24g to left forearm, G-tube, illeostomy and ayala catheter in place. Multiple wounds noted to sacrum. Muscle contractures to x 4 extremities. Patient skin hot to touch. Audible rales noted. ABD non distended. Will continue to monitor.
--- NOTE | 2018-06-27 22:18 | NUR ---
SHANTI Yancey at bedside examining patient.
--- NOTE | 2018-06-27 22:29 | NUR ---
Patient's code status is FULL CODE- Physician Orders for Life-Sustaining Treatment paperwork placed in chart.
[2018-06-27] MEDS ORDERED: NACL 0.9% 1,000 ML IV ONE ×3 (22:30→23:45)
--- NOTE | 2018-06-27 22:35 | NUR ---
#22 gauge angiocath placed to right wrist. Use of asceptic technique. Opsite placed over site. Blood return noted. Blood for lab drawn from site. Flushed with 10 cc of normal saline. No evidence of infiltration noted. Patient tolerated well.
[2018-06-27] MEDS ORDERED: ACYC400T PO (22:46)
[2018-06-27] MEDS ORDERED: DIF100 IVPB (22:46)
[2018-06-27] MEDS ORDERED: CEFE1PIG3 IV (22:46)
--- NOTE | 2018-06-27 22:47 | NUR ---
Medication reconciliation completed with information provided by Yinka Granger. Any prior medication reconciliation on file was reviewed and corrected.
--- NOTE | 2018-06-27 22:54 | NUR ---
Radiology at bedside for CXR.
[2018-06-27 22:57] LABS: HEMATOCRIT 41.9 % (36-54); MEAN CORPUSCULAR HEMOGLOBIN 30 pg (27-31); MEAN CORPUSCULAR HGB CONC 34 % (32-36); MEAN CORPUSCULAR VOLUME 89 fL (79.0-98.0); PLATELET COUNT (AUTO) 452 K/uL (130-430); RED BLOOD CELL COUNT(AUTO) 4.74 MIL/uL (4.2-6.2); RED CELL DISTRIBUTION WIDTH 16.2 % (9.0-15.0); WHITE BLOOD COUNT (AUTO) 25.4 K/uL (4.8-10.8)
[2018-06-27] MEDS ORDERED: DILTIAZEM HCL 25 MG/5 ML VIAL IVP ONE (23:00)
--- NOTE | 2018-06-27 23:00 | NUR ---
#16 FR Ayala catheter with use of sterile technique. Immediate return of 0 cc urine noted. Bedside drainage bag placed below level of bladder. Pt tolerated procedure well. Patient arrived with ayala in place, changed due to standard of practice prior to admission. Patient unable to toilet self.
[2018-06-27 23:01] LABS: ANION GAP 8 (5-15); CREATININE 1.08 mg/dL (0.55-1.30); GLUCOSE 188 mg/dL (70-99); SODIUM SERUM 152 mmol/L (136-145)
[2018-06-27 23:07] LABS: ALANINE AMINOTRANSFERASE 31 U/L (12-78); ALBUMIN 2.7 g/dL (3.4-4.8); ASPARTATE AMINOTRANSFERASE 14 U/L (10-37); TOTAL BILIRUBIN 0.3 mg/dL (0.0-1.0)
[2018-06-27] MEDS ORDERED: VANCOMYCIN HCL 1,000 MG in NS 250 ML IV ONE (23:15)
[2018-06-27] MEDS ORDERED: PIPERACILLIN/TAZO 3.375 GM in NS 50 ML IV ONE (23:15)
[2018-06-27 23:27] LABS: CHLORIDE 122 mmol/L (98-107); UREA NITROGEN, BLOOD 140 mg/dL (8-21)
[2018-06-27] MEDS ORDERED: ACETAMINOPHEN 650 MG SUPP.RECT RC ONE (23:30)
--- NOTE | 2018-06-27 23:30 | NUR ---
ED MD Iverson at bedside for medical evaluation.
[2018-06-27 23:32] LABS: BAND % (MANUAL) 1 % (0-6); BASOPHILS % (MANUAL) 0 % (0-2); EOSINOPHILS % (MANUAL) 0 % (0-7); LYMPHOCYTES % (MANUAL) 4 % (20-46); MONOCYTES % (MANUAL) 2 % (0-11)
[2018-06-27] MEDS ORDERED: PIPERACILLIN/TAZOBACTAM 3.375 GM/VIAL (ZOSYN) IV ONE (23:32)
[2018-06-27] MEDS ORDERED: VANCOMYCIN HCL 1000 MG/VIAL IV ONE (23:32)
--- NOTE | 2018-06-27 23:44 | NUR ---
ABX administered. Sepsis documentation present in physician charting. Sepsis protocol initiated while in ED.
[2018-06-27] MEDS ORDERED: NACL 0.9% 1,000 ML IV SCH (23:59)
[2018-06-28] VITALS (25 sets, daily range): BP systolic 84–118
[2018-06-28] MEDS ORDERED: MORPHINE 2 MG/ML INJ. SYRINGE IVP PRN
[2018-06-28] MEDS ORDERED: NOREPINEPHRINE BITARTRATE 4 MG in NS 246 ML IV ONE ×2
[2018-06-28] MEDS ORDERED: ACETAMINOPHEN 325 MG TABLET PO PRN
[2018-06-28] MEDS ORDERED: IPRATROPIUM/ALBUTEROL SULFATE 3 ML AMPUL.NEB INH PRN
[2018-06-28] MEDS ORDERED: ONDANSETRON HCL 4 MG/2 ML VIAL IVP PRN
--- NOTE | 2018-06-28 | NUR ---
RT at bedside to obtain blood gas.
[2018-06-28] MEDS ORDERED: DILTIAZEM HCL 25 MG/5 ML VIAL IVP ONE ×2 (00:15)
[2018-06-28] MEDS: DILTIAZEM HCL 30 MG TABLET PO SCH ×3 (00:15→15:48)
--- NOTE | 2018-06-28 00:20 | NUR ---
PUT PT ON BIPAP AT AROUND 2250 SETTINGS: 10/21, BUR 20, PS 6, FIO2 100% PER DR ALICIA ORDER. AT AROUND 2355 TITRATED PT FIO2 TO 80% AND KELVIN ABG. PER ABG RESULTS AFTER CHANGES AROUND 0005 . (SEE LAB REPORT) SWITCHED PT FIO2 AGAIN TO 40% NOW PT GOT TRANSPORTED TO ICU 2. WILL CONTINUE TO MONITOR PT.
[2018-06-28 00:22] LABS: INR 1.1 (0.80-1.20); PROTHROMBIN TIME 10.9 SECS (9.5-12.5)
--- NOTE | 2018-06-28 01:00 | NUR ---
Patient will be admitted to care of Dr. Shankar. Admitted to ICU. Will go to room 2. Belongings list completed. Summary report printed. Report will be given at bedside. Transfer to ICU via ACLS protocol. Licensed nurse present. IV present no signs or symptoms of infiltration.
--- NOTE | 2018-06-28 01:05 | NUR ---
ARRIVAL TO ICU PT ARRIVES TO ICU. NO SIGNS OF DISTRESS, NO APPARENT PAIN OR DISCOMFORT. PLACED ON BIPAP 12/6, BUR 20, FIO2 40%. ADMISSION TO BE COMPLETED.
[2018-06-28 01:08] LABS: BILIRUBIN,URINE NEGATIVE (NEGATIVE); BLOOD, URINE 1+ (NEGATIVE); CLARITY/URINE CLEAR (CLEAR); COLOR,URINE YELLOW (YELLOW); GLUCOSE,URINE NEGATIVE (NEGATIVE); KETONES,URINE NEGATIVE (NEGATIVE); LEUKOCYTE ESTERASE ,URINE 1+ (NEGATIVE); NITRITE, URINE NEGATIVE (NEGATIVE); PH,URINE 5.5 (5.0-8.0); PROTEIN URINE TRACE (NEGATIVE); UROBILINOGEN,URINE 0.2 (0.2-1.0)
[2018-06-28 01:24] LABS: BACTERIA,URINE MODERATE /HPF (None Seen); FINE GRANULAR CASTS,URINE 0-10 /LPF (None Seen); MUCUS,URINE None Seen /LPF (None Seen)
[2018-06-28] MEDS: IPRATROPIUM/ALBUTEROL SULFATE 3 ML AMPUL.NEB INH SCH ×4 (01:27→18:38)
[2018-06-28] MEDS ORDERED: PIPERACILLIN/TAZOBACTAM 3.375 GM/VIAL (ZOSYN) IV ONE (05:14)
[2018-06-28] MEDS: PIPERACILLIN/TAZO 3.375 GM in NS 50 ML IV SCH ×3 (05:24→18:09)
--- NOTE | 2018-06-28 07:01 | NUR ---
Consult MD: Nephro. Dr. Jerez called (dr. alicea match up person) spoke to marylou dialed [phone] Shankar
[2018-06-28 07:24] LABS: AMYLASE 57 U/L (0-100); ANION GAP 6 (5-15); CALCIUM 10.4 mg/dL (8.4-11.0); CREATININE 0.93 mg/dL (0.55-1.30); FREE T4 (FREE THYROXINE) 0.7 ng/dL (0.6-1.6); GLUCOSE 143 mg/dL (70-99); LIPASE 62 U/L (73-393); PHOSPHORUS 2.1 mg/dL (2.7-4.5); POTASSIUM 3.7 mmol/L (3.5-5.1); SODIUM SERUM 155 mmol/L (136-145); THYROID STIMULATING HORMONE 0.18 uIu/mL (0.34-4.82)
--- NOTE | 2018-06-28 07:27 | NUR ---
CLOSING NOTE PT IN BED, AWAKE, OBTUNDED. NO SIGNS OF DISTRESS, NO APPARENT PAIN OR DISCOMFORT. NO ACUTE CHANGES OVERNIGHT. CARE TO CONTINUE TO NEXT SHIFT.
--- NOTE | 2018-06-28 07:30 | NUR ---
OPENING NOTE PATIENT REPORT RECEIVED FROM FORM TAMPER NURSEKALYANI. PATIENT RESTING COMFORTABLY, NO INDICATIONS OF PAIN, NO NOTABLE SIGNS OF DISTRESS AT THIS TIME. PATIENT ON BIPAP 12/6 FI02 40% AND BACK UP RATE AT 20. PATIENT IS SINUS TACHY ON THE MONITOR WITH PAC'S. PATIENT HAS IVF RUNNING AT 60ML/HR. PATIENT HAS TAMAYO CATHETER DRAINING TO GRAVITY. PATIENT REPOSITIONED UPON PILLOW SUPPORT. PATIENT TO HAVE PICC LINE PLACED TODAY. PATIENT HAS ILEOSTOMY. PATIENT IS NON VERBAL, AND WILL OPEN EYE BUT NOT FOLLOW WITH MOVEMENT. PATIENT HAS SCDS BILATERALLY FOR DVT PROPHYLAXIS. WILL CONTINUE TO FOLLOW UP AND MONITOR PATIENT FOR CHANGES IN STATUS.
[2018-06-28 07:38] LABS: CHLORIDE 130 mmol/L (98-107); UREA NITROGEN, BLOOD 113 mg/dL (8-21)
--- NOTE | 2018-06-28 08:06 | NUR ---
Nutrition Update Osman Scale 10 noted. Pt admitted for pneumonia Diet: regular diet BMI: 17.1 kg/m2 RD to follow per nutrition care standards.
[2018-06-28 08:29] LABS: HEMATOCRIT 34.6 % (36-54); HEMOGLOBIN 11.5 g/dL (14.0-18.0); MEAN CORPUSCULAR HEMOGLOBIN 30 pg (27-31); MEAN CORPUSCULAR HGB CONC 33 % (32-36); MEAN CORPUSCULAR VOLUME 91 fL (79.0-98.0); PLATELET COUNT (AUTO) 314 K/uL (130-430); RED BLOOD CELL COUNT(AUTO) 3.82 MIL/uL (4.2-6.2); RED CELL DISTRIBUTION WIDTH 16.4 % (9.0-15.0); WHITE BLOOD COUNT (AUTO) 26.5 K/uL (4.8-10.8)
[2018-06-28 08:36] LABS: BAND % (MANUAL) 17 % (0-6); BASOPHILS % (MANUAL) 0 % (0-2); EOSINOPHILS % (MANUAL) 1 % (0-7); LYMPHOCYTES % (MANUAL) 2 % (20-46); MONOCYTES % (MANUAL) 4 % (0-11)
--- NOTE | 2018-06-28 08:55 | NUR ---
NOTE PICC LINE NURSELIBRADO, CALLED VIA PHONE, WILL PROCEED WITH CONSENT PROCEDURE.
[2018-06-28] MEDS: SOTALOL HCL 80 MG TABLET GT SCH ×2 (09:00→21:00)
--- NOTE | 2018-06-28 09:00 | NUR ---
NOTE CALLED FAWAD CARTER AT [phone] FOR CONSENT. AWAITING RETURN CALL.
[2018-06-28] MEDS: ACYCLOVIR 400 MG TABLET PO SCH (09:05)
[2018-06-28] MEDS: DOCUSATE SODIUM 100 MG CAPSULE PO SCH ×2 (09:05→21:09)
[2018-06-28] MEDS: FLUCONAZOLE 100 MG TABLET (DIFLUCAN) GT SCH (09:05)
[2018-06-28] MEDS: CHOLECALCIFEROL (VITAMIN D3) 2,000 UNIT TABLET GT SCH ×2 (09:05→21:10)
[2018-06-28] MEDS: FINASTERIDE 5 MG TABLET (PROSCAR) GT SCH (09:06)
[2018-06-28] MEDS: D5W 1,000 ML IV SCH ×2 (09:10→18:09)
--- NOTE | 2018-06-28 09:15 | NUR ---
NOTE DR. JAMISON SIGNED CONSENT FOR PICC PLACEMENT, MEDICALLY NEEDED. WILL INFORM FAWAD UPON RETURN CALL.
--- NOTE | 2018-06-28 09:15 | NUR ---
SHAHEEN JAMISON AT BEDSIDE TO EVALUATE PATIENT. ABG REVIEWED WITH MD. WILL FOLLOW UP REGARDING ORDERS.
--- NOTE | 2018-06-28 09:15 | NUR ---
ARTUR SIDDIQUI AT BEDSIDE, MADE AWARE OF CRITICAL VALUES. SHE WILL MAKE CHANGES NECESSARY. WILL FOLLOW UP REGARDING ORDERS.
--- NOTE | 2018-06-28 09:42 | NUR ---
PICC PICC NURSE AT BEDSIDE, TIME OUT PROCEDURE PERFORMED BY MYSELF AND BARRON PAVON.
--- NOTE | 2018-06-28 09:46 | NUR ---
NOTE FAWAD CARTER RETURNED CALL, INFORMED OF PICC PLACEMENT AND OKAY BY PHYSICIAN DUE TO MEDICALLY NECESSITY.
[2018-06-28] MEDS ORDERED: methylPREDNISolone SOD SUCC/PF 62.5 MG/ML VIAL IVP ONE (10:15)
--- NOTE | 2018-06-28 10:33 | NUR ---
PICC VERIFICATION PICC VERIFICATION COMPLETED BY CXR, BILL VERIFIED PLACEMENT.
[2018-06-28] MEDS: methylPREDNISolone SOD SUCC/PF 62.5 MG/ML VIAL IVP SCH ×2 (12:17→21:11)
--- NOTE | 2018-06-28 12:19 | NUR ---
TUBEFEEDING/CHG/LATE MEDICATION/TUBING CHANGE TUBEFEEDING STARTED AT RATE OF 45ML/HR PER MD ORDERS AND DIETARY. PATIENT HAS 0 RESIDUAL AT THIS TIME. CHG BATH GIVEN, LINENS CHANGED, AND PATIENT GOWN CHANGED. PATIENT TOLERATED. PATIENT MEDICATION GIVEN LATE DUE TO PATIENT BATHING, AND PICC PLACEMENT AND VERIFICATION. ALL TUBING CHANGED AFTER STARTING WITH PICC LINE.
--- NOTE | 2018-06-28 13:36 | NUR ---
Dietitian Recommendations *Recommend Pivot 1.5 at 55ml/hr (goal), FWF 250 Q8H via GT. Provides: 1980 kcal, 124 gm protein and 1752ml free water daily. Meets: 93% of upper end of estimated calorie needs and 85% of upper end of estimated protein needs. Please see Nutritional Assessment for details. FRANCI, RD
[2018-06-28] MEDS: GENTAMICIN 120 MG/ ISO-OSM 100 ML PREMIX IV SCH (13:53)
--- NOTE | 2018-06-28 14:07 | NUR ---
SHAHEEN JAMISON AWARE OF DECREASING BLOOD PRESSURE AND MAP OF 66. ORDERS RECEIVED FOR LEVOPHED TO KEEP SBP >90. WILL IMPLEMENT NECESSARY. ORDERS ENTERED BY NURSE.
[2018-06-28 14:44] LABS: ANION GAP 9 (5-15); CALCIUM 10.2 mg/dL (8.4-11.0); CREATININE 0.81 mg/dL (0.55-1.30); GLUCOSE 158 mg/dL (70-99); POTASSIUM 4.1 mmol/L (3.5-5.1); SODIUM SERUM 155 mmol/L (136-145); UREA NITROGEN, BLOOD 96 mg/dL (8-21)
[2018-06-28 14:46] LABS: CHLORIDE 128 mmol/L (98-107)
--- NOTE | 2018-06-28 14:52 | NUR ---
ARTUR PAGED DR. SIDDIQUI CRITICAL VALUE FOR CHLORIDE AT 128. INFORMED OF SODIUM LEVEL, POTASSIUM LEVEL, AND BUN WELL. NO CHANGES MADE AT THIS TIME. NO NEW ORDERS AT THIS TIME.
--- NOTE | 2018-06-28 15:54 | NUR ---
NOTE PATIENT RESTING COMFORTABLY. NEEDS ARE MET AT THIS TIME. PATIENT TAMAYO CATHETER DRAINING TO GRAVITY. TF RUNNING PER MD ORDERS AT RATE OF 45ML/HR. PATIENT HAS IVF RUNNING PER MD ORDERS AT RATE OF 100ML/HR. PATIENTS TAMAYO DRAINING TO GRAVITY. ILEOSTOMY IS FREE OF LEAKS, DRAINING WELL. PATIENTS BIPAP SETTINGS ARE 12/6; FI02 40%; AND BACK UP RATE OF 10. WILL CONTINUE TO FOLLOW UP AND MONITOR PATIENT FOR CHANGES IN STATUS.
[2018-06-28] MEDS ORDERED: NOREPINEPHRINE 4 MG/4 ML VIAL IV ONE (16:07)
[2018-06-28] MEDS: NOREPINEPHRINE BITARTRATE 4 MG in D5W 246 ML IV PRN (16:13)
--- NOTE | 2018-06-28 16:21 | NUR ---
LEVOPHED LEVOPHED STARTED PATIENTS BLOOD PRESSURE 86/49 WITH MAP OF 61. STARTED AT 2MCG/MIN PER PROTOCOL. WILL CONTINUE TO FOLLOW UP AND MONITOR.
--- NOTE | 2018-06-28 19:05 | NUR ---
Opening Note Received patient A/O x 1. Patient on BIPAP /, FIO2 40%, back up rate of 20. DAYSI PICC infusing Levophed @ 2mcg/min. D5W @ 100 mls/hr, dressing dry and intact. Ileostomy to R Upper ABD noted. Pt on tubefeeding, Pivot 1.5 @ mls/hr via Gtube, no residual noted. Patient on ayala, urine draining to gravity. Bilateral SCDs in place. POC discussed. HOB elevated, call light within reach. Bed locked, in lowest position. Safety and aspiration precautions in place. No apparent discomfort or distress noted. Will continue to monitor.
--- NOTE | 2018-06-28 20:05 | NUR ---
PAGED I PAGED DR. LOYD @ 2003 I SPOKE WITH RENZO DONIS
--- NOTE | 2018-06-28 20:24 | NUR ---
PAGED PAGED DR. LOYD @ 2023 I SPOKE WITH CHAUNCEY GAGANDEEP THIS IS THE SECOND CALL FOR DR. LOYD.
--- NOTE | 2018-06-28 21:18 | NUR ---
PAGED I PAGED DR. LOYD @[id number] I SPOKE WITH RENZO DONIS THIS IS THE THIRD CALL THIS TIME DR. BOYD @ [phone]
[2018-06-28] MEDS ORDERED: VANCOMYCIN HCL 750 MG in NS 250 ML IV SCH (22:00)
--- NOTE | 2018-06-28 22:10 | NUR ---
RN Rounds Patient VSS. Levophed @ 2mcg/min. IVF infusing @ 100mls/hr. No apparent distress noted. Will continue to monitor.
[2018-06-29] VITALS (24 sets, daily range): BP systolic 90–154
[2018-06-29] MEDS: DILTIAZEM HCL 30 MG TABLET PO SCH ×4 (00:15→23:24)
[2018-06-29] MEDS: PIPERACILLIN/TAZO 3.375 GM in NS 50 ML IV SCH ×5 (00:22→23:23)
[2018-06-29] MEDS: IPRATROPIUM/ALBUTEROL SULFATE 3 ML AMPUL.NEB INH SCH ×4 (00:55→19:36)
--- NOTE | 2018-06-29 00:58 | NUR ---
RN Rounds RT at bedside to give breathing treatment. Patient VSS. No apparent distress noted. Will continue to monitor.
--- NOTE | 2018-06-29 04:08 | NUR ---
RN Rounds Patient VSS. Levophed @ 2mcg/min. IVF infusing @ 100mls/hr. Tubefeeding tolerated well. No apparent distress noted. Will continue to monitor.
[2018-06-29] MEDS: D5W 1,000 ML IV SCH ×3 (04:41→23:23)
[2018-06-29] MEDS: methylPREDNISolone SOD SUCC/PF 62.5 MG/ML VIAL IVP SCH ×3 (05:18→21:13)
[2018-06-29 05:47] LABS: ALANINE AMINOTRANSFERASE 27 U/L (12-78); ALBUMIN 1.8 g/dL (3.4-4.8); ANION GAP 8 (5-15); ASPARTATE AMINOTRANSFERASE 14 U/L (10-37); CALCIUM 10.4 mg/dL (8.4-11.0); CREATININE 0.72 mg/dL (0.55-1.30); GLUCOSE 231 mg/dL (70-99); PHOSPHORUS 2.7 mg/dL (2.7-4.5); POTASSIUM 3.9 mmol/L (3.5-5.1); SODIUM SERUM 151 mmol/L (136-145); TOTAL BILIRUBIN 0.2 mg/dL (0.0-1.0); UREA NITROGEN, BLOOD 77 mg/dL (8-21)
[2018-06-29 06:00] LABS: BASOPHILS % (AUTO) 0.2 % (0.0-2.0); EOSINOPHILS % (AUTO) 0.1 % (0.0-4.0); HEMATOCRIT 29.6 % (36-54); LYMPHOCYTES # (AUTO) 0.7 K/uL (1.0-5.5); LYMPHOCYTES % (AUTO) 5.4 % (20.5-51.5); MEAN CORPUSCULAR HEMOGLOBIN 31 pg (27-31); MEAN CORPUSCULAR HGB CONC 34 % (32-36); MEAN CORPUSCULAR VOLUME 90 fL (79.0-98.0); MONOCYTES # (AUTO) 0.1 K/uL (0.0-1.0); MONOCYTES % (AUTO) 0.8 % (1.7-9.3); NEUTROPHILS # (AUTO) 11.5 K/uL (1.8-7.7); NEUTROPHILS % (AUTO) 93.5 % (40.0-70.0); PLATELET COUNT (AUTO) 237 K/uL (130-430); RED BLOOD CELL COUNT(AUTO) 3.29 MIL/uL (4.2-6.2); RED CELL DISTRIBUTION WIDTH 16.5 % (9.0-15.0)
[2018-06-29 06:04] LABS: WHITE BLOOD COUNT (AUTO) 12.3 K/uL (4.8-10.8)
[2018-06-29 06:20] LABS: CHLORIDE 125 mmol/L (98-107)
--- NOTE | 2018-06-29 07:10 | NUR ---
Closing Note: Patient VSS. No sign of distress noted. POC endorsed to Lala at bedside.
--- NOTE | 2018-06-29 07:30 | NUR ---
RECEIVED REPORT FROM CARLOS MANUEL MART. PT IN BED WITH EYES CLOSED, MOVES TO TACTILE STIMULATION. O2 SAT 100% ON BIPAP 12/5, 40% FIO2, BUR 20. UNLABORED RESPIRATIONS. SR ON MONITOR. GT WITH PIVOT TUBE FEEDING INFUSING AT 45ML/HR. ILEOSTOMY NOTED. TAMAYO DRAINING URINE TO GRAVITY. SCDs IN USE. DAYSI PICC WITH IVF INFUSING AND LEVOPHED AT 2MCG/MIN. HOB ELEVATED, BED LOCKED AND IN LOWEST POSITION, CALL LIGHT IN REACH. WILL CONTINUE TO MONITOR.
[2018-06-29 08:10] LABS: T4 (THYROXINE) 6.1 ug/dL (4.5-12.0)
[2018-06-29] MEDS: FINASTERIDE 5 MG TABLET (PROSCAR) GT SCH (08:10)
[2018-06-29] MEDS: ACYCLOVIR 400 MG TABLET PO SCH (08:10)
[2018-06-29] MEDS: SOTALOL HCL 80 MG TABLET GT SCH ×2 (08:11→21:00)
[2018-06-29] MEDS: DOCUSATE SODIUM 100 MG CAPSULE PO SCH ×2 (08:11→21:13)
[2018-06-29] MEDS: CHOLECALCIFEROL (VITAMIN D3) 2,000 UNIT TABLET GT SCH ×2 (08:11→21:14)
[2018-06-29] MEDS: FLUCONAZOLE 100 MG TABLET (DIFLUCAN) GT SCH (08:12)
--- NOTE | 2018-06-29 09:00 | NUR ---
MD ROUNDS DR JAMISON HERE TO EVALUATE PT. AWARE OF AM LABS/ABG. RECEIVED ORDERS FOR RT TO PLACE PT ON NC TOLERATED.
--- NOTE | 2018-06-29 09:10 | NUR ---
RT NOTES Took pt off bipap and placed on 2L NC per Dr Ramirez's order. No immediate adverse reactions noted. 0920 sat. 98% H.R. 68 RR 22 exhaled CO2 25. No respiratory distress noted. Will monitor pt.
--- NOTE | 2018-06-29 09:10 | NUR ---
RT PLACED PT ON 2LNC PER ORDERS BY DR JAMISON. O2 SAT 98% AT THIS TIME, UNLABORED RESPIRATIONS. WILL CONTINUE TO MONITOR.
--- NOTE | 2018-06-29 09:49 | NUR ---
MD ROUNDS DR PEARSON HERE TO EVALUATE PT. AWARE OF AM LABS. RECEIVED ORDERS FOR CONSULT WITH DR SOARES AND TOMORROW AM LABS.
--- NOTE | 2018-06-29 09:52 | NUR ---
Consult MD: Cardio. Dr. Gamboa called spoke to prasad dialed [phone] Thrasher
[2018-06-29] MEDS: NOREPINEPHRINE BITARTRATE 4 MG in D5W 246 ML IV PRN (11:01)
--- NOTE | 2018-06-29 12:38 | NUR ---
MD ROUNDS DR SIDDIQUI HERE TO EVALUATE PT. NO NEW ORDERS RECEIVED AT THIS TIME.
[2018-06-29] MEDS: GENTAMICIN 120 MG/ ISO-OSM 100 ML PREMIX IV SCH (13:06)
--- NOTE | 2018-06-29 13:25 | NUR ---
RT NOTES Per LAB, earlier sputum sample was contaminated. Re-collected, w/c pt. tolerated well. Endorsed sample to BARRON Reeves. Addendum: 06/29/18 at 1340 by Beulah Oliver RT Amended: Links added.
--- NOTE | 2018-06-29 14:03 | NUR ---
WOUND EVALUATION: Late note for 1403 secondary to patient care. Wound Consult received from Dr. Shankar. Thank you, Dr. Shankar, for the consult. Patient received in a Low Bed with an Isoflex MEÑO mattress with low air loss therapy, awake, nonverbal, nonresponsive to verbal commands. Patient is unable to turn in bed independently. Osman Score is a 10. Past Medical History: Intellectually Impaired, G-tube, Dementia, benign prostatic hypertrophy, hypertension, and dysphagia. Recent Labs: WBC 12.3, RBC 3.29, hemoglobin 10.0, hematocrit 29.6, sodium 151, chloride 125, BUN 77, creatinine 0.72, glucose 231, alkaline phosphatase 123, albumin 1.8, PTT 25.1. Intrinsic factors that delay wound healing: Severe Hypoalbuminemia. Extrinsic factors that delay wound healing: Immobility. Microbiology: Urine culture results in progress. MRSA screen results negative. Blood culture results 2 in progress. Sputum culture results in progress. Patient was on Levophed drip. Wound Assessment: 1. Right Sacral/Coccygeal Area: Unstageable pressure ulcer, present on admission. Wound bed has 40% pink tissue, 30% yellow slough, 20% black tissue, 10% brown tissue (on right lateral aspect). No odor, no drainage. Periwound (superior aspect) has dark discolored tissue. Surrounding tissue has scar tissue. Wound measures 3.5 cm x 7.7 cm. Recommend: Cleanse wound with normal saline. Place moisture barrier cream onto silas-wound. Apply Venelex ointment onto wound bed. Cover with Sacral foam dressing. Perform wound care daily, and as needed for dressing soiling or dislodgement. 2. Scrotum: Erythema from IAD, present on admission. No odor, no drainage. Surrounding tissue has scar tissue. Recommend: Cleanse site with normal saline. Pat dry. Apply antifungal powder to site. Perform site care bid, and as needed for soiling. 3. Right Medial Malleolus: Scar tissue with dark discoloration, present on admission. Recommend: Cover site with foam dressing. Perform site care daily, and as needed for dressing soiling or dislodgement. Offload elevate and float foot with one pillow lengthwise at all times. Do not allow foot or malleoli to touch bed or other surfaces at any time. Also recommend: Reposition patient side to side only every 2 hours with pillow support, and off-load pressure areas with pillows for pressure re-distribution. Offload, elevate and float bilateral heels with one pillow lengthwise under each extremity at all times. Perform skin care and monitor skin integrity Q shift. Use moisture barrier cream on buttocks and other moisture susceptible areas QID and as needed for soiling. Apply Phytoplex Criticare cream (blue and white tube) onto Scrotal area qid, and as needed for soiling. Maintain patient on a low air-loss mattress.
--- NOTE | 2018-06-29 14:03 | NUR ---
WOUND CARE/CHG WOUND CARE COMPLETED WITH DEANDRA FUEL AGENT. CHG BATH GIVEN, LINEN CHANGED. PT TOLERATED WELL. WILL CONTINUE TO MONITOR.
--- NOTE | 2018-06-29 17:55 | NUR ---
MD ROUNDS DR SOARES HERE TO EVALUATE PT. RECEIVED ORDERS FOR ECHO AND EKG TOMORROW AM.
--- NOTE | 2018-06-29 19:08 | NUR ---
REPORT GIVEN TO CRISTIAN USING SBAR.
--- NOTE | 2018-06-29 19:25 | NUR ---
Report Received report from BARRON Reeves using SBAR. Patient comfortable in bed WITH EYES CLOSED, MOVES TO TACTILE STIMULATION. O2 2L/Min N/C Saturating 98% by pulse oximeter. Respiration UNLABORED. Monitor SR. B/P 94/40. GT WITH PIVOT TUBE FEEDING INFUSING AT 45ML/HR. ILEOSTOMY NOTED. TAMAYO TO GRAVITY draining light yellow urine. RUQ Ostomy with liquidy stool. DAYSI PICC WITH IVF INFUSING D5W at 100 cc/hr. HOB ELEVATED, BED LOCKED AND IN LOWEST POSITION, CALL LIGHT IN REACH. Supportive measures given. WILL CONTINUE TO MONITOR.
--- NOTE | 2018-06-29 23:10 | NUR ---
Oral care given. Repositioned for comfort. No distress noted. Continue to monitor.
[2018-06-30] VITALS (17 sets, daily range): BP systolic 88–111
[2018-06-30] MEDS: IPRATROPIUM/ALBUTEROL SULFATE 3 ML AMPUL.NEB INH SCH ×4 (01:03→20:21)
--- NOTE | 2018-06-30 04:30 | NUR ---
Condition unchanged. Complete bath and linen change done. Tolerated procedure without distress noted.
[2018-06-30] MEDS: PIPERACILLIN/TAZO 3.375 GM in NS 50 ML IV SCH ×3 (06:07→17:40)
[2018-06-30] MEDS: methylPREDNISolone SOD SUCC/PF 62.5 MG/ML VIAL IVP SCH (06:08)
[2018-06-30 07:07] LABS: ALANINE AMINOTRANSFERASE 28 U/L (12-78); ALBUMIN 1.7 g/dL (3.4-4.8); ANION GAP 8 (5-15); ASPARTATE AMINOTRANSFERASE 16 U/L (10-37); CALCIUM 9.9 mg/dL (8.4-11.0); CREATININE 0.57 mg/dL (0.55-1.30); GLUCOSE 182 mg/dL (70-99); POTASSIUM 3.5 mmol/L (3.5-5.1); SODIUM SERUM 149 mmol/L (136-145); TOTAL BILIRUBIN 0.2 mg/dL (0.0-1.0); UREA NITROGEN, BLOOD 58 mg/dL (8-21)
[2018-06-30 07:12] LABS: BASOPHILS % (AUTO) 0.1 % (0.0-2.0); EOSINOPHILS % (AUTO) 0.1 % (0.0-4.0); HEMATOCRIT 27.4 % (36-54); HEMOGLOBIN 9.1 g/dL (14.0-18.0); LYMPHOCYTES # (AUTO) 0.6 K/uL (1.0-5.5); LYMPHOCYTES % (AUTO) 6.6 % (20.5-51.5); MEAN CORPUSCULAR HEMOGLOBIN 30 pg (27-31); MEAN CORPUSCULAR HGB CONC 33 % (32-36); MEAN CORPUSCULAR VOLUME 89 fL (79.0-98.0); MONOCYTES # (AUTO) 0.2 K/uL (0.0-1.0); MONOCYTES % (AUTO) 2.1 % (1.7-9.3); NEUTROPHILS # (AUTO) 8.9 K/uL (1.8-7.7); NEUTROPHILS % (AUTO) 91.1 % (40.0-70.0); PLATELET COUNT (AUTO) 212 K/uL (130-430); RED BLOOD CELL COUNT(AUTO) 3.09 MIL/uL (4.2-6.2); WHITE BLOOD COUNT (AUTO) 9.8 K/uL (4.8-10.8)
[2018-06-30 07:16] LABS: CHLORIDE 120 mmol/L (98-107)
--- NOTE | 2018-06-30 07:22 | NUR ---
Report given to BARRON Reeves using SBAR approach. No distress noted.
--- NOTE | 2018-06-30 07:30 | NUR ---
RECEIVED REPORT FROM CRISTIAN MART. PT IN BED WITH EYES OPEN, DOES NOT FOLLOW COMMANDS. SR ON MONITOR. PT ON 2LNC, O2 SAT 96%, UNLABORED RESPIRATIONS. GT WITH PIVOT 1.5 TUBE FEEDING AT 45ML/HR. ILEOSTOMY WITH BROWN STOOL DRAINING. TAMAYO DRAINING URINE TO GRAVITY. SCDs IN USE. DAYSI PICC WITH D5W AT 100ML/HR INFUSING. HOB ELEVATED, BED LOCKED AND IN LOWEST POSITION, CALL LIGHT IN REACH. WILL CONTINUE TO MONITOR.
[2018-06-30] MEDS: DILTIAZEM HCL 30 MG TABLET PO SCH ×2 (08:15→16:15)
[2018-06-30] MEDS: BALSAM PERU/CASTOR OIL 60 GM OINT...G. TP SCH (08:24)
[2018-06-30] MEDS: ACYCLOVIR 400 MG TABLET PO SCH (08:24)
[2018-06-30] MEDS: FINASTERIDE 5 MG TABLET (PROSCAR) GT SCH (08:24)
[2018-06-30] MEDS: SOTALOL HCL 80 MG TABLET GT SCH ×2 (08:25→21:00)
[2018-06-30] MEDS: FLUCONAZOLE 100 MG TABLET (DIFLUCAN) GT SCH (08:26)
[2018-06-30] MEDS: DOCUSATE SODIUM 100 MG CAPSULE PO SCH ×2 (08:26→20:59)
[2018-06-30] MEDS: CHOLECALCIFEROL (VITAMIN D3) 2,000 UNIT TABLET GT SCH ×2 (08:26→20:59)
--- NOTE | 2018-06-30 10:08 | NUR ---
MD ROUNDS DR JAMISON HERE TO EVALUATE PT. AWARE OF AM LABS/ABG. CHANGED GT H2O FLUSH TO 200ML Q4HR.
[2018-06-30] MEDS: D5W 1,000 ML IV SCH (11:07)
--- NOTE | 2018-06-30 12:05 | NUR ---
RECEIVED ORDERS TO TRANSFER PT TO TELE, CALLED FOR BED. SPOKE TO KIET MART AND GAVE REPORT. AWAITING RETURN CALL FOR TELE BED AND RN.
--- NOTE | 2018-06-30 13:00 | NUR ---
WOUND CARE/CHG WOUND CARE COMPLETED PER ORDERS. CHG BATH GIVEN. LINEN/GOWN CHANGED. PT TOLERATED WELL.
[2018-06-30] MEDS: GENTAMICIN 120 MG/ ISO-OSM 100 ML PREMIX IV SCH (13:05)
--- NOTE | 2018-06-30 13:25 | NUR ---
PT TRANSFERRED TO TELE 134A, REPORT GIVEN TO ALESSANDRO. ENDORSED TO ALESSANDRO THAT WOUND PICTURES HAVE NOT YET BEEN TAKEN TODAY AND THAT THEY NEED TO BE DONE.
--- NOTE | 2018-06-30 13:30 | NUR ---
Patient received a/ox1, nonverbal, opens eyes does not track, on 2L Nasal Cannula, patient cannot ambulate, all extremities contracted, vital signs stable, PICC line to right upper arm intact and flushing well, G tube in place, tube feeding running, no residual output at this time, ileostomy to right lower quadrant draining soft brown stool at this time, Johnston Catheter in place draining to gravity at this time, SCD's in place, Low air loss mattress in place, wound dressings noted did not remove in order to promote wound healing, bed in lowest position, three side rails up, bed alarm on, fall, aspiration and isolation precautions in place.
--- NOTE | 2018-06-30 14:45 | NUR ---
RN rounds patient resting in bed, eyes closed, breathing is even and unlabored, no signs of distress, turned and repositioned the patient with assistance from IMPROVEMENT DIRECTOR, no residual output from G tube at this time, water flush given per MD orders, no other needs at this time, bed in lowest position, three side rails up, bed alarm on, fall, aspiration and isolation precautions in place.
[2018-06-30] MEDS: methylPREDNISolone SOD SUCC 40 MG/ML VIAL IVP SCH (16:20)
--- NOTE | 2018-06-30 16:32 | NUR ---
RN rounds patient resting in bed, eyes closed, breathing is even and unlabored, no signs of distress, PICC line patent and infusing well, IV Solu-Medrol given per MD orders, continuing to monitor the patient, bed in lowest position, three side rails up, bed alarm on, fall, aspiration and isolation precautions in place.
--- NOTE | 2018-06-30 17:45 | NUR ---
RN rounds/Antibiotic patient resting in bed, eyes closed, breathing is even and unlabored, no signs of distress, easy to wake, IV antibiotic hung and infusing well, PICC line in place and intact, no other needs at this time, bed in lowest position, three side rails up, bed alarm on, fall, aspiration and isolation precautions in place.
--- NOTE | 2018-06-30 18:10 | NUR ---
Closing note patient resting in bed, eyes closed, breathing is even and unlabored, no signs of distress, no residual output from G tube at this time, water flush given per MD orders, all needs met, will endorse report to NOC shift nurse, bed in lowest position, three side rails up, bed alarm on, fall, aspiration and isolation precautions in place.
--- NOTE | 2018-06-30 19:15 | NUR ---
OPENING NOTE Received report from day shift nurse BARRON Palacios. Patient resting in bed awake, oriented x1. Breathing unlabored and even on 2L NC. Tolerating well. No signs of distress, no needs at this time. Fall, safety, aspiration, contact precautions in place. Bed in lowest position, brake on, alarm on, call light within reach. Tube feeding infusing as ordered. IVF infusing as ordered. SCDs on. Will continue to monitor.
--- NOTE | 2018-06-30 21:05 | NUR ---
Med pass. Held Betapace due to low BP (100/53)
--- NOTE | 2018-06-30 23:46 | NUR ---
Patient resting in bed with eyes closed. Breathing unlabored and even on 2L NC. Tolerating well. No signs of distress, no needs at this time. Fall, safety, aspiration, contact precautions in place. Bed in lowest position, brake on, alarm on, call light within reach. Tube feeding infusing as ordered. IVF infusing as ordered. SCDs on. Will continue to monitor.
[2018-07-01] MEDS: PIPERACILLIN/TAZO 3.375 GM in NS 50 ML IV SCH ×2 (00:08→05:17)
[2018-07-01] MEDS: DILTIAZEM HCL 30 MG TABLET PO SCH ×2 (00:09→08:15)
--- NOTE | 2018-07-01 00:12 | NUR ---
Med pass. Held cardizem due to low BP.
[2018-07-01 00:40] VITALS: BP_SYST 108
[2018-07-01] MEDS: IPRATROPIUM/ALBUTEROL SULFATE 3 ML AMPUL.NEB INH SCH ×4 (01:53→19:35)
--- NOTE | 2018-07-01 03:51 | NUR ---
New tubefeeding hung
[2018-07-01 04:50] LABS: ANION GAP 6 (5-15); CALCIUM 9.7 mg/dL (8.4-11.0); CHLORIDE 117 mmol/L (98-107); CREATININE 0.54 mg/dL (0.55-1.30); GLUCOSE 145 mg/dL (70-99); POTASSIUM 3.5 mmol/L (3.5-5.1); SODIUM SERUM 146 mmol/L (136-145); UREA NITROGEN, BLOOD 48 mg/dL (8-21)
--- NOTE | 2018-07-01 05:18 | NUR ---
Iv abx hung
[2018-07-01] MEDS: methylPREDNISolone SOD SUCC 40 MG/ML VIAL IVP SCH (06:03)
[2018-07-01] MEDS: D5W 1,000 ML IV SCH ×2 (06:08→20:53)
--- NOTE | 2018-07-01 06:10 | NUR ---
New IVF hung
[2018-07-01 08:00] VITALS: BP_SYST 107
--- NOTE | 2018-07-01 08:00 | NUR ---
Opening Note received report from night shift supervisor RN, pt resting in bed, awake, A&0X1, pt nonverbal, respirations even and unlabored on 2L nasal canula, no pain noted using FLACC scale, no acute distress noted, PICC to right upper arm clean, dry, intact, and infusing well, tube feeding Pivot 1.5 @ 45ml/hr, ileostomy bag to right upper abdomen intact, ayala catheter draining to gravity, SCDs in place, pt educated on use of call light and asked to call for assistance, call light in reach, bed in low position, bed alarm on, fall, aspiration, and isolation precautions in place.
[2018-07-01] MEDS: FLUCONAZOLE 100 MG TABLET (DIFLUCAN) GT SCH (08:53)
[2018-07-01] MEDS: FINASTERIDE 5 MG TABLET (PROSCAR) GT SCH (08:53)
[2018-07-01] MEDS: ACYCLOVIR 400 MG TABLET PO SCH (08:54)
[2018-07-01] MEDS: CHOLECALCIFEROL (VITAMIN D3) 2,000 UNIT TABLET GT SCH ×2 (08:54→20:51)
[2018-07-01] MEDS: SOTALOL HCL 80 MG TABLET GT SCH ×2 (08:54→20:52)
[2018-07-01] MEDS: BALSAM PERU/CASTOR OIL 60 GM OINT...G. TP SCH (08:56)
--- NOTE | 2018-07-01 09:03 | NUR ---
Medication pt educated on medication use and side effects, 5ml residual from tube feeding, pt tolerated medication administration well, no acute distress noted, fall, aspiration, and isolation precautions in place.
[2018-07-01] MEDS ORDERED: COMMUNICATION ORDER XX ONE (09:15)
[2018-07-01] MEDS: DILTIAZEM HCL 30 MG TABLET GT SCH ×2 (09:16→17:16)
[2018-07-01] MEDS ORDERED: ACYCLOVIR 400 MG TABLET GT SCH (09:16)
[2018-07-01] MEDS ORDERED: DOCUSATE SODIUM 100 MG/10 ML UDC GT ONE (09:45)
--- NOTE | 2018-07-01 09:51 | NUR ---
Medication pt educated on medication use and side effects, pt tolerated medication administration well, no acute distress noted, no pain noted, fall, aspiration, and isolation precautions in place.
--- NOTE | 2018-07-01 11:55 | NUR ---
RN Rounds pt sleeping in bed, easily arousable to name, respirations even and unlabored on 2L nasal canula, no acute distress noted, fall, aspiration, and isolation precautions in place.
--- NOTE | 2018-07-01 12:00 | NUR ---
MD Rounds Rounds with Dr. Smyth, per pt no longer needs to be on contact isolation, contact isolation precautions complete at this time.
[2018-07-01 12:35] VITALS: BP_SYST 114
--- NOTE | 2018-07-01 13:52 | NUR ---
RN Rounds pt resting in bed, respiratory therapy at bedside, pt tolerating well, fall and aspiration precautions in place.
--- NOTE | 2018-07-01 15:10 | NUR ---
Nutrition F/U Admitting Diagnosis Pneumonia Reviewed Pertinent Medical/Surgical Hx Medical Record Patient Medical History Comment: Pt found w/: Early pneumonia/Sepsis, Mild Respiratory distress, UTI, Hypernatremia, Hypercalcemia, mildly elevated BNP, febrile, hypotensive, hyperchloremia, dementia, ayala cath per ER MD documentation. PMH: GERD, COPD per ER MD documentation. 07/01/18 ID Consult note: septic shock -- resolved; enterococcal septisemia; HABP/PNA; CKD; MR; cerebral palsy; ileostomy Subjective Information Pt seen resting in bed, +nasal cannula, +TF infusing as per MD notes. Per nursing notes, pt had 5 ml residual earlier today. Per EMR, TF Intakes: 540 ml 07/01/18. Output (stool): 350 ml 07/01/18. Abd is soft w/ active bowel sounds. I/O: 1260/1150 (+110 ml) per 12 hours. Current TF regimen is inadequate as it provides 1350 kcal/day and 84 gm protein/day. Current Diet Order/Nutrition Support Pivot 1.5 at 45 ml/hr, Free Water Flush: 200 Q8 via GT x3 days Patient/Significant Other Unable To Verbalize Education Provided Not Indicated Pertinent Medications VIT D Pertinent Labs Na 146 H, BG 145 H, BUN 48 H, Alb 1.7L, H/H 9.1 L/27.4 L, WBC 9.8 WNL (improved), Phosphorus 2.7 WNL (improved) Height (Feet) 5 feet Height (Inches) 9.00 inches Weight (Pounds) 116 pounds (06/28/18) Weight (Calculated Kilograms) 52.184217 kilograms Patient Weight 52.617 kg Body Mass Index 17.13 kg/m2 %IBW [address] [place]/Adjusted Body Weight 160 lb, 73 kg Weight Status Underweight Difficulty With: Swallowing Usual Diet At Home Pivot 1.5 at45ml x20 hrs, FWF 100cc q8h via GT per [facility] records Skin Integrity Comment: Osman scale: 12; per [employer] note 06/29/18: 1. Right Sacral/Coccygeal Area: Unstageable pressure ulcer, present on admission. 2. Scrotum: Erythema from IAD, present on admission. No odor, no drainage. 3. Right Medial Malleolus: Scar tissue with dark discoloration, present on admission. Current % PO N/A on EN support Estimated Energy Expenditure (kcals/day) 2234-3238 kcal/day (BEE x 1.2-1.5 IBW for Sepsis) Estimated Protein Required (g/day) 110-146 gm/day (1.5-2 gm/kg IBW for Sepsis) Estimated Fluid Required (l/day) 1.7-2.1 L/day (1ml/kcal/day) Problem/Etiology/Signs/Symptoms Increased nutritional needs related to metabolic demands as evidenced by estimated calorie and protein needs for Sepsis. *ongoing Expected Outcomes/Goals Monitor tolerance to EN support and EN intake w/ goal of pt meeting at least 75% of estimated nutritional needs, labs trending WNL, normal GI function, skin integrity/wt maintenance. Dietitian Recommendations *Recommend Pivot 1.5 at 55 ml/hr (goal), Free Water Flush: 250 Q8H via GT Provides: 1980 kcal/day, 124 gm protein/day, and 1752 ml free water/day Meets: 93% of upper end of estimated caloric needs and 85% of upper end of estimated protein needs Follow Up High Risk: F/U in 2-3 days Addendum: 07/01/18 at [address] Nutrition Consult received for unstageable sacral-coccygeal PU.
--- NOTE | 2018-07-01 15:14 | NUR ---
Wound Care wound care to sacrum/coccygeal area, scrotum and right medial malleolus completed at this time per orders, pt tolerated well, pt cleaned and linen changed, pt repositioned, ODELL in place, heels floating, no acute distress noted, fall and aspiration precautions in place.
--- NOTE | 2018-07-01 15:20 | NUR ---
Dietitian Recommendations *Recommend Pivot 1.5 at 55 ml/hr (goal), Free Water Flush: 250 Q8H via GT Provides: 1980 kcal/day, 124 gm protein/day, and 1752 ml free water/day Meets: 93% of upper end of estimated caloric needs and 85% of upper end of estimated protein needs LP, RD Please refer to Nutrition F/U for details.
--- NOTE | 2018-07-01 15:33 | NUR ---
Tube Feeding order received to increase tube feeding from 45ml/hr to 55ml/hr and change free water flush to 250ml Q8hr, tube feeding adjusted at this time, pt tolerating well, no acute distress noted, fall and aspiration precautions in place.
[2018-07-01 16:30] VITALS: BP_SYST 120
--- NOTE | 2018-07-01 17:30 | NUR ---
RN Rounds pt sleeping in bed, easily arousable to name, tolerating O2 therapy on 2L nasal canula well, no acute distress noted, fall and aspiration precautions in place.
--- NOTE | 2018-07-01 19:20 | NUR ---
Closing Note pt resting in bed, A&Ox1, respirations even and unlabored on 2L nasal canula, no pain noted using FLACC scale, PICC to upper right arm clean, dry, intact, and infusing well, tube feeding Pivot 1.5 @ 55ml/hr, ayala catheter draining to gravity, wound dressings clean, dry, and intact, wound care completed today, heels floating, SCDs in place, ODELL in place, right upper ileostomy intact, no acute distress noted, fall and aspiration precautions in place, care endorsed to material handler 2nd shift RN.
[2018-07-01 19:25] VITALS: BP_SYST 105
--- NOTE | 2018-07-01 19:25 | NUR ---
OPENING NOTE Received bedside sbar report from andrzej MART, Reba Patient is awake/alert, unable to assess orientation. No acute distress noted: 105/58 62 17 97.7 98% (2LNC) with no grimacing or signs of pain/discomfort. IV site noted to DAYSI PICC line double lumen with D5W infusing @ 60ml/hr. No signs of redness or infiltration. Johnston catheter noted with approx 150 ml of yellow urine. Colostomy bag noted with approx 200 ml of light brown watery stool. G-tube noted with Pivot 1.5 infusing @ 55ml/hr with approx 10ml residual. SCD's applied/functioning. Introduced myself, updated whiteboard, discussed plan of care. Bed to lowest position, 3 rails up, call light within reach, bed alarm activated. Will continue to monitor patient.
--- NOTE | 2018-07-01 19:35 | NUR ---
Respiratory currently with patient administering breathing treatment.
[2018-07-01] MEDS: DOCUSATE SODIUM 100 MG/10 ML UDC GT SCH (20:51)
[2018-07-01] MEDS: AMPICILLIN SODIUM/SULBACTAM NA 1.5 GM in NS 50 ML IV SCH (20:52)
--- NOTE | 2018-07-01 21:26 | NUR ---
ROUNDS Patient is resting comfortably, eyes closed with no acute distress noted. IV picc line site is clean/dry/intact with no signs of redness/infiltration. G-tube residual approx 8ml. Respirations are equal as well as non-labored @ 17/min. Bed to lowest position, 3 rails up, call light within reach, bed alarm activated. Will continue to monitor patient.
--- NOTE | 2018-07-01 23:21 | NUR ---
ROUNDS Patient is resting comfortably, eyes closed with nasal canula applied and flowing @ 2L IV picc line site is clean/dry/intact and infusing D5W @ 60ml/hr with no infiltration. No shortness of breath, no labored breathing with respirations @ 16/min. Bed to lowest position, 3 rails up, call light within reach, bed alarm activated. Will continue to monitor patient.
[2018-07-02] MEDS: IPRATROPIUM/ALBUTEROL SULFATE 3 ML AMPUL.NEB INH SCH ×4 (00:18→19:56)
--- NOTE | 2018-07-02 00:18 | NUR ---
Respiratory currently with patient administering breathing treatment.
[2018-07-02 00:48] VITALS: BP_SYST 104
[2018-07-02] MEDS: DILTIAZEM HCL 30 MG TABLET GT SCH (00:50)
--- NOTE | 2018-07-02 01:05 | NUR ---
Johnston catheter is leaking urine onto chucks. Deflated balloon and received approx 8ml. Reinflated balloon with 10ml NS and retrieved approximately 50ml yellow urine. Will continue to monitor urine output.
--- NOTE | 2018-07-02 02:37 | NUR ---
ROUNDS Patient is resting comfortably, eyes open with no acute distress noted. Picc line site is clean/dry/intact and infusing D5W @ 60ml/hr with no signs of redness or infiltration. Symmetric rise and fall of chest with non-labored respirations @ 18/min. 2L NC applied/flowing. Bed to lowest position, 3 rails up, call light within reach, bed alarm activated. Will continue to monitor patient.
--- NOTE | 2018-07-02 04:45 | NUR ---
ROUNDS Patient is resting, eyes closed, and easily arouses to light stimulation. Johnston catheter is properly draining with no leakage at this time. DAYSI picc site dressing is clean/dry/intact and infusing D5W @ 60ml/hr with no infiltration. Equal rise and fall of chest with respirations @ 17/min. SCD's applied/functioning. Bed to lowest position, 3 rails up, call light within reach, bed alarm activated. Will continue to monitor patient.
[2018-07-02 06:05] LABS: ANION GAP 2 (5-15); CALCIUM 9.3 mg/dL (8.4-11.0); CHLORIDE 115 mmol/L (98-107); CREATININE 0.39 mg/dL (0.55-1.30); GLUCOSE 96 mg/dL (70-99); POTASSIUM 3.7 mmol/L (3.5-5.1); SODIUM SERUM 143 mmol/L (136-145); UREA NITROGEN, BLOOD 40 mg/dL (8-21)
[2018-07-02 06:16] LABS: BASOPHILS % (AUTO) 0.4 % (0.0-2.0); EOSINOPHILS % (AUTO) 0.3 % (0.0-4.0); HEMOGLOBIN 9.1 g/dL (14.0-18.0); LYMPHOCYTES # (AUTO) 1.3 K/uL (1.0-5.5); LYMPHOCYTES % (AUTO) 12.5 % (20.5-51.5); MEAN CORPUSCULAR HEMOGLOBIN 30 pg (27-31); MEAN CORPUSCULAR HGB CONC 34 % (32-36); MEAN CORPUSCULAR VOLUME 88 fL (79.0-98.0); MONOCYTES # (AUTO) 0.9 K/uL (0.0-1.0); MONOCYTES % (AUTO) 9.1 % (1.7-9.3); NEUTROPHILS # (AUTO) 7.8 K/uL (1.8-7.7); NEUTROPHILS % (AUTO) 77.7 % (40.0-70.0); PLATELET COUNT (AUTO) 205 K/uL (130-430); RED BLOOD CELL COUNT(AUTO) 3.09 MIL/uL (4.2-6.2); RED CELL DISTRIBUTION WIDTH 16.2 % (9.0-15.0)
--- NOTE | 2018-07-02 07:05 | NUR ---
CLOSING NOTE Bedside sbar report given to dayshift RN Paige Patient is resting, eyes closed, no acute distress All needs/interventions/expectations met by nightshift relief docking master of care successful.
[2018-07-02 08:00] VITALS: BP_SYST 103
--- NOTE | 2018-07-02 08:00 | NUR ---
initial notes rec patient awake but non verbally responsive with hob elevated. picc line on the r upper arm intact, infusing well and no infiltrationnoted. with o2 at 2 liters via nasal cannula. no sob noted. bed in low position and side rails up and locked. call light within reached. bed / safety precaution reinforced.
[2018-07-02] MEDS: DOCUSATE SODIUM 100 MG/10 ML UDC GT SCH (09:42)
[2018-07-02] MEDS: SOTALOL HCL 80 MG TABLET GT SCH (09:43)
[2018-07-02] MEDS: BALSAM PERU/CASTOR OIL 60 GM OINT...G. TP SCH (09:44)
[2018-07-02] MEDS: FLUCONAZOLE 100 MG TABLET (DIFLUCAN) GT SCH (09:45)
[2018-07-02] MEDS: FINASTERIDE 5 MG TABLET (PROSCAR) GT SCH (09:45)
[2018-07-02] MEDS: CHOLECALCIFEROL (VITAMIN D3) 2,000 UNIT TABLET GT SCH (09:45)
--- NOTE | 2018-07-02 10:00 | NUR ---
rounds due meds were given and derrick well trough the gt. no residual noted.turned repositioned for comfort. no acute distress noted.
--- NOTE | 2018-07-02 11:11 | NUR ---
Discharge Planning: Pt has dc order to return to SNF; KRISTI has faxed referral to [facility] ([phone] [phone]). Addendum: 07/02/18 at 1407 by Lyla Li LCSW SECURITY ORDERLY received a voice mail from Jeremy at [facility]. SECURITY ORDERLY called back and left a voicemail regarding pt returning to SNF. SECURITY ORDERLY awaiting call back from Jeremy. SECURITY ORDERLY will continue to follow up.
[2018-07-02 12:16] VITALS: BP_SYST 108
[2018-07-02] MEDS: AMPICILLIN SODIUM/SULBACTAM NA 1.5 GM in NS 50 ML IV SCH (12:38)
--- NOTE | 2018-07-02 14:00 | NUR ---
rounds turned repositioned for comfort. no sob noted.
--- NOTE | 2018-07-02 16:00 | NUR ---
rounds resting comfortably, no acute distress noted. turned repositioned for comfort. gt feeding derrick well. no residual noted.
--- NOTE | 2018-07-02 17:34 | NUR ---
Discharge Planning Note: SHAREPOINT SOLUTIONS ARCHITECT received a call back from Jeremy at [facility] ([phone]) stating that pt can return to Rm. 22A. SHAREPOINT SOLUTIONS ARCHITECT called and spoke with [facility] Center Worker, Jose Arnett ([phone]); Jose is aware and agreeable to pt's transfer to [facility] today. SHAREPOINT SOLUTIONS ARCHITECT called [facility] ([phone]) and arranged transport for between 1900 and 193. SHAREPOINT SOLUTIONS ARCHITECT prepared pt's packet and placed packet at the nurses station. SHAREPOINT SOLUTIONS ARCHITECT updated Assistant To The Director and ADR Nurse, Lisa.
--- NOTE | 2018-07-02 18:46 | NUR ---
closing notes will endorsed to next shift, pt will be transferred to [facility]. picture was taken . bed in low position and side rails up and locked.
--- NOTE | 2018-07-02 19:15 | NUR ---
OPENING NOTE Received bedside sbar report from andrzej RNPaige Patient is awake/alert, unable to assess orientation. No acute distress noted: 101/52 71 19 97.1 98% (2LNC) with no grimacing or signs of pain/discomfort. IV site noted to DAYSI PICC line double lumen saline locked. Johnston catheter noted with approx 50 ml of yellow urine. Colostomy bag noted with approx 50 ml of light brown watery stool. G-tube noted. SCD's applied/functioning. Introduced myself, updated whiteboard, discussed plan of care. Bed to lowest position, 3 rails up, call light within reach, bed alarm activated. Patient to be discharged, ambulance scheduled to arrive between
[2018-07-02 19:30] VITALS: BP_SYST 101
--- NOTE | 2018-07-02 19:35 | NUR ---
Called to give report to [facility] and spoke to BARRON Banegas. She says that nobody told them that patient was coming and he is not on their schedule. Informed her that case management spoke to Jeremy and he accepted and provided admission room #. She says she will need to call him to discuss because patient is not listed on their intake notice. Informed her that the scheduled ambulance will be here at any moment.
--- NOTE | 2018-07-02 20:10 | NUR ---
Received call from Annmarie with [facility] she says she spoke to Jeremy and confirmed that bed was saved and admit was approved. Ok to transport patient to room # 22-a
--- NOTE | 2018-07-02 22:24 | NUR ---
Discharge - Gave SBAR report to Joey with [facility]. Patient is currently awake/alert, unable to assess orientation. All belongings sent with patient. PICC line and Johnston catheter still inserted per [facility] request. Patient taken via gurney. Addendum: 07/02/18 at 2226 by Jazzy Hernandez RN Correction, discharge time was 2100
== END 2018-07-02 21:00 | DRG 720 ==
LOC: SED 22:14 → SIC 06-28 00:02 → STU 06-30 14:04 → SMU 07-02 10:48
PROVIDERS: ADMIT Family Medicine; ATTEND Family Medicine
PROC: 02HV33Z Insertion of Infusion Device into Superior Vena Cava, Percutaneous Approach (ICD-10-PCS; principal; 2018-06-28)
PROC: 5A09457 Assistance with Respiratory Ventilation, 24-96 Consecutive Hours, Continuous Positive Airway Pressure (ICD-10-PCS; 2018-06-28)
DX: A41.9 Sepsis, unspecified organism (principal); N17.0 Acute kidney failure with tubular necrosis; J96.00 Acute respiratory failure, unspecified whether with hypoxia or hypercapnia; J69.0 Pneumonitis due to inhalation of food and vomit; R65.21 Severe sepsis with septic shock; E43 Unspecified severe protein-calorie malnutrition; G93.41 Metabolic encephalopathy; J15.6 Pneumonia due to other Gram-negative bacteria; G30.9 Alzheimer's disease, unspecified; F02.80 Dementia in other diseases classified elsewhere, unspecified severity, without behavioral disturbance, psychotic disturbance, mood disturbance, and anxiety; E87.0 Hyperosmolality and hypernatremia; I11.0 Hypertensive heart disease with heart failure; I50.9 Heart failure, unspecified; N39.0 Urinary tract infection, site not specified; E86.0 Dehydration; E86.1 Hypovolemia; E83.52 Hypercalcemia; F79 Unspecified intellectual disabilities; J44.9 Chronic obstructive pulmonary disease, unspecified; L89.899 Pressure ulcer of other site, unspecified stage; G80.9 Cerebral palsy, unspecified; I48.0 Paroxysmal atrial fibrillation; K21.9 Gastro-esophageal reflux disease without esophagitis; N31.9 Neuromuscular dysfunction of bladder, unspecified; N40.0 Benign prostatic hyperplasia without lower urinary tract symptoms; R53.2 Functional quadriplegia; Z16.24 Resistance to multiple antibiotics; Z87.440 Personal history of urinary (tract) infections; Z90.49 Acquired absence of other specified parts of digestive tract; Z93.1 Gastrostomy status; Z93.2 Ileostomy status; Z93.3 Colostomy status; M47.812 Spondylosis without myelopathy or radiculopathy, cervical region; Z74.01 Bed confinement status; Z68.1 Body mass index [BMI] 19.9 or less, adult
CPT/HCPCS: 36415; 36600; 71045; 80048; 80053; 80170-TC; 81000-TC; 82150-TC; 82803-TC; 83036; 83605; 83690-TC; 83735-TC; 83880; 84100-TC; 84436; 84439; 84443-TC; 84479; 84484; 85007; 85025; 85027; 85610-TC; 85730-TC; 87040-TC; 87070-TC; 87081; 87086; 87186-TC; 87205-TC; 93005; 93306; 94640; 94660; 94760; 96361; 96365; 96367; 96368; 96375; 99291; A4409; C1751; J0295; J1030; J1580; J2543; J2930; J3370; J3490; J7030; J7050; J7060; J7620

== ENCOUNTER 2018-07-13 11:01 | Emergency (ER) | payer MEDICARE, MEDICAID ==
[~2018-07-13] VITALS: Ht 160 cm; Wt 70.3 kg
[~2018-07-13 11:01] MED LIST changes: +ACYC400T PO; +DIF100 IVPB
[2018-07-13 11:09] VITALS: BP_SYST 120
[2018-07-13] MEDS ORDERED: GASTROGRAFIN 120 ML ONE (12:02)
[2018-07-13 12:36] VITALS: BP_SYST 126
== END 2018-07-13 12:36 | disposition home or self-care (01) ==
LOC: SED 11:01
DX: Z43.1 Encounter for attention to gastrostomy (principal); J44.9 Chronic obstructive pulmonary disease, unspecified; K21.9 Gastro-esophageal reflux disease without esophagitis; I11.0 Hypertensive heart disease with heart failure; I50.9 Heart failure, unspecified; I48.91 Unspecified atrial fibrillation; F03.90 Unspecified dementia, unspecified severity, without behavioral disturbance, psychotic disturbance, mood disturbance, and anxiety; Z79.899 Other long term (current) drug therapy
CPT/HCPCS: 43760; 74240; 99284; Q9963; 99285

== ENCOUNTER 2018-07-17 11:49 | Inpatient (IN) | payer MEDICAID, MEDICARE ==
[~2018-07-17] VITALS: Ht 172.7 cm; Wt 49.0 kg
[2018-07-17 11:54] VITALS: BP_SYST 112
--- NOTE | 2018-07-17 11:55 | NUR ---
Patient to ER bed 8 to gown for evaluation. Side rails up.
--- NOTE | 2018-07-17 11:58 | NUR ---
Pt bib BLS from [facility] for low O2 sat on RA. Pt presents on 10L NRB at 97-98%. Pt nonverbal baseline, nonambulatory, pressure ulcers noted on buttocks ,GT,Johnston cath and PICC line in place. Pt afebrile at this time with HR 92.
[2018-07-17] MEDS ORDERED: NACL 0.9% 1,000 ML IV ONE (12:00)
--- NOTE | 2018-07-17 12:00 | NUR ---
ER at bedside examining patient.
[2018-07-17] MEDS ORDERED: IPRATROPIUM/ALBUTEROL SULFATE 3 ML AMPUL.NEB ONE (12:16)
[2018-07-17 12:37] LABS: ANION GAP 1 (5-15); CREATININE 0.54 mg/dL (0.55-1.30); GLUCOSE 116 mg/dL (70-99); POTASSIUM 3.6 mmol/L (3.5-5.1); SODIUM SERUM 149 mmol/L (136-145); UREA NITROGEN, BLOOD 48 mg/dL (8-21)
[2018-07-17 12:40] LABS: PROTHROMBIN TIME 10.1 SECS (9.5-12.5)
[2018-07-17 12:41] LABS: BASOPHILS # (AUTO) 0.2 K/uL (0.0-0.2); BASOPHILS % (AUTO) 1.3 % (0.0-2.0); EOSINOPHILS % (AUTO) 0.2 % (0.0-4.0); HEMATOCRIT 34.5 % (36-54); HEMOGLOBIN 11.5 g/dL (14.0-18.0); LYMPHOCYTES # (AUTO) 0.9 K/uL (1.0-5.5); LYMPHOCYTES % (AUTO) 7.1 % (20.5-51.5); MEAN CORPUSCULAR HEMOGLOBIN 30 pg (27-31); MEAN CORPUSCULAR HGB CONC 34 % (32-36); MEAN CORPUSCULAR VOLUME 88 fL (79.0-98.0); MONOCYTES # (AUTO) 0.7 K/uL (0.0-1.0); MONOCYTES % (AUTO) 5.7 % (1.7-9.3); NEUTROPHILS # (AUTO) 10.7 K/uL (1.8-7.7); NEUTROPHILS % (AUTO) 85.7 % (40.0-70.0); PLATELET COUNT (AUTO) 224 K/uL (130-430); RED CELL DISTRIBUTION WIDTH 16.9 % (9.0-15.0); WHITE BLOOD COUNT (AUTO) 12.5 K/uL (4.8-10.8)
[2018-07-17 12:42] LABS: ALANINE AMINOTRANSFERASE 30 U/L (12-78); ALBUMIN 2.2 g/dL (3.4-4.8); ASPARTATE AMINOTRANSFERASE 16 U/L (10-37); TOTAL BILIRUBIN 0.5 mg/dL (0.0-1.0)
[2018-07-17 12:51] LABS: CHLORIDE 121 mmol/L (98-107)
[2018-07-17] MEDS ORDERED: ZINC50TA37 GT (12:53)
[2018-07-17] MEDS ORDERED: BISA10SU61 RC (12:53)
[2018-07-17] MEDS ORDERED: ASCO-339 GT (12:53)
[2018-07-17] MEDS ORDERED: [UNRECOGNIZED DRUG - CODE] GT (12:53)
[2018-07-17] MEDS ORDERED: IPRA3AMP9 INH (12:53)
[2018-07-17] MEDS ORDERED: MOM GT (12:53)
--- NOTE | 2018-07-17 12:53 | NUR ---
Medication reconciliation completed with information provided by Yinka Granger. Any prior medication reconciliation on file was reviewed and corrected.
[2018-07-17] MEDS ORDERED: VANCOMYCIN HCL 1,000 MG in NS 250 ML IV ONE (13:00)
[2018-07-17] MEDS ORDERED: VANCOMYCIN HCL 1000 MG/VIAL IV ONE (13:12)
--- NOTE | 2018-07-17 13:20 | NUR ---
Pt tolerating medication, continuing to monitor.
[2018-07-17] MEDS ORDERED: HEPARIN 25,000 UNITS/D5W 250ML 250 ML IV ONE (14:00)
--- NOTE | 2018-07-17 14:00 | NUR ---
# 16 FR Ayala catheter with use of sterile technique. Immediate return of 10 cc yellow urine noted. Bedside drainage bag placed below level of bladder. Urine sample collected and sent to lab. Pt tolerated procedure well. Patient arrived with ayala in place, changed due to standard of practice prior to admission. Patient unable to toilet self.
--- NOTE | 2018-07-17 14:03 | NUR ---
Patient will be admitted to care of . Admitted to Telemetry unit. Will go to room 105B. Belongings list completed. Summary report printed. Report will be given at bedside.
[2018-07-17] MEDS ORDERED: HEPARIN SODIUM,PORCINE 2000 UNITS/0.4 ML BOLUS IVP PRN (14:45)
[2018-07-17] MEDS ORDERED: HEPARIN SODIUM,PORCINE 3000 UNITS/0.6 ML BOLUS IVP PRN (14:45)
--- NOTE | 2018-07-17 14:46 | NUR ---
ADMISSION NOTE Received patient from ER via gm, received report from AUTUMN MART. Patient admitted with diagnosis of ACUTE RESPIRATORY FAILURE. Patient oriented to hospital routine, call light, toileting and safety.
--- NOTE | 2018-07-17 14:55 | NUR ---
Notes Patient from ER. Patient awake. Unable to make needs known. No s/sx pain noted. Cont on O2@2L/M via NC, derrick well. No acute distress. No SOB. Respiration even and unlabored. Skin warm and dry to touch. PICC line to right upper extremity intact and patent covered with clean dry dressing. Patient is contracted to all extremities. Gtube intact and patent. Ileostomy to RLQ. Johnston inserted 07/17/18 in ER draining yellow urine. Wound noted to right sacral area with no bleeding, no drainage and no odor noted. Bed in low and locked position. Siderail up x3. Bed alarm on. Room near nurses station. Call light in reach. Cont to monitor with frequent visual checks.
[2018-07-17] MEDS ORDERED: HEPARIN SODIUM,PORCINE 5000 UNITS/ML VIAL IVP ONE (15:00)
[2018-07-17] MEDS ORDERED: IPRATROPIUM/ALBUTEROL SULFATE 3 ML AMPUL.NEB INH PRN (15:00)
[2018-07-17] MEDS ORDERED: cefTRIAXone 1 GM in D5W 50 ML IV ONE (15:00)
[2018-07-17] MEDS ORDERED: BISACODYL 10 MG/SUPPOSITORY RC PRN (15:00)
[2018-07-17] MEDS ORDERED: ACETAMINOPHEN 650 MG/20.3 ML UDC GT PRN (15:00)
[2018-07-17 15:08] VITALS: BP_SYST 116
[2018-07-17] MEDS ORDERED: LEVOFLOXACIN 250 MG/D5W 50 ML IV SCH (15:15)
--- NOTE | 2018-07-17 15:15 | NUR ---
SEEN AND EXAMINED BY AT BEDSIDE. ALL NEEDS MET. CONT TO MONITOR. CALL LIGHT IN REACH.
--- NOTE | 2018-07-17 15:20 | NUR ---
US VENOUS DOPPLER US VENOUSE DOPPLER TO BILAT LOWER EXTREMITY DONE AT BEDSIDE. PATIENT GINA WELL. ALL NEEDS MET. CONT TO MONITOR.
[2018-07-17] MEDS ORDERED: LEVOFLOXACIN 250 MG/D5W 50 ML IV ONE (15:29)
[2018-07-17 15:31] VITALS: BP_SYST 112
--- NOTE | 2018-07-17 15:51 | NUR ---
CONSULTATION PAGED/CALLED Reason for Consultation: [] ACUTE RESP FAIL Person Who was Notified: [] BHUPINDER Consulting Physician: [] DR JAMISON Automobile Assembly Supervisor Specialty: [] PULMONOLOGY Ordering Physician: [] DR MARLEY
[2018-07-17] MEDS ORDERED: 0.45% NS 500 ML IV ONE (16:00)
--- NOTE | 2018-07-17 16:00 | NUR ---
US VENOUS DOPPLER DOPPLER STUDY COMPLETED WITH RESULT NEGATIVE TO BILAT EXTREMITIES
--- NOTE | 2018-07-17 16:16 | NUR ---
Nutrition Note RD modified pt's TF formula from Osmolite 1.2 to Pivot 1.5 at same MD order rate of 50 ml/hr, as COUNT INCLUDES THE [facility] does not have Osmolite 1.2 readily availabl. Pivot 1.5 TF formula already features arginine, glutamine, and a very high protein content to help support protein synthesis, tissue repair, and wound healing -- therefore, previous Memo BID order was D/C as well. RD notified pt's primary RN of TF modification. Addendum: 07/17/18 at [address] to continue to follow as per nutrition care standards.
[2018-07-17] MEDS: METOCLOPRAMIDE HCL 10 MG/10 ML UDC GT SCH ×2 (16:18→20:59)
[2018-07-17 16:59] LABS: BILIRUBIN,URINE NEGATIVE (NEGATIVE); BLOOD, URINE 3+ (NEGATIVE); COLOR,URINE YELLOW (YELLOW); GLUCOSE,URINE NEGATIVE (NEGATIVE); KETONES,URINE TRACE (NEGATIVE); LEUKOCYTE ESTERASE ,URINE TRACE (NEGATIVE); NITRITE, URINE NEGATIVE (NEGATIVE); PROTEIN URINE TRACE (NEGATIVE); UROBILINOGEN,URINE 0.2 (0.2-1.0)
[2018-07-17 17:31] LABS: BACTERIA,URINE FEW /HPF (None Seen); URINE AMORPHOUS URATE 2+ /HPF (None Seen); YEAST,URINE Few /HPF (None Seen)
[2018-07-17 17:32] LABS: CLARITY/URINE CLOUDY (CLEAR); MUCUS,URINE 1+ /LPF (None Seen)
--- NOTE | 2018-07-17 18:00 | NUR ---
NOTES PATIENT RESTING IN BED, EASILY AROUSABLE. PATIENT HOB IS >45. TOLERATING GTUBE FEEDING ORDERED WITH NO N/V NOTED. REPOSITIONED FOR COMFORT. ALL NEEDS MET. CALL LIGHT IN REACH. CONT TO MONITOR WITH FREQUENT VISUAL CHECK
--- NOTE | 2018-07-17 18:27 | NUR ---
PAGE CALLED FOR DR. MARLEY. SPOKE TO MIRLANDE, DIALED [phone].
--- NOTE | 2018-07-17 18:39 | NUR ---
SPOKE TO AND REPORTED UNABLE TO GET CONSENT FOR VQ SCAN FROM [employer]. INFORMED MD PATIENTS BILAT VENOUS DOPPLER WAS NEGATIVE AND PATIENT IS ON HEPARIN DRIP. PER CANCEL VQ SCAN TODAY AND HE WILL TAKE CARE OF IT TOMORROW.
--- NOTE | 2018-07-17 18:55 | NUR ---
CLOSING NOTE PATIENT RESTING IN BED, EASILY AROUSABLE. GINA O2@2L/M VIA NC. NO ACUTE DISTRESS. NO SOB. RESPIRATION EVEN AND UNLABORED. HOB>45. SKIN WARM AND DRY TO TOUCH. TOLERATING GTUBE FEEDING ORDERED. PICC LINE TO RIGHT UPPER ARM INTACT AND PATENT. TOLERATING IVF AND HEPARIN DRIP ORDERED. NO S/SX ABNORMAL BLEEDING NOTED. TAMAYO CATH DRAINING CLOUDY YELLOW URINE. KEPT CLEAN AND DRY. GINA AIR MATTRESS AND REPOSITIONING. ALL NEEDS MET. CALL LIGHT IN REACH. CONT TO MONITOR. WILL ENDORSE TO ONCOMING SHIFT.
[2018-07-17] MEDS: IPRATROPIUM/ALBUTEROL SULFATE 3 ML AMPUL.NEB INH SCH (19:12)
--- NOTE | 2018-07-17 19:25 | NUR ---
CHANGE OF SHIFT; pt. sleeping when received, opens eyes when name called, non verbal, does not follow commands. On Heparin drip @ 900 units/hr=9cc/hr via PICC line on left upper arm and IVF of 1/2 NS 2 100 cc/hr. O2 @ 2l/nc. G tube feeding @ 50 cc/hr. ayala cath to OSD, ileostomy bag with liquid greenish drainage. side rails up. Addendum: 07/18/18 at 0421 by Cristiane Chowdhury RN PICC line on rt. upper arm, double lumen catheter.
[2018-07-17 20:00] VITALS: BP_SYST 114
[2018-07-17] MEDS: ASCORBIC ACID 500 MG TABLET GT SCH (20:59)
[2018-07-17] MEDS ORDERED: MILK OF MAGNESIA 30 ML UDC GT PRN (21:00)
--- NOTE | 2018-07-17 21:00 | NUR ---
NOTES: repositioned. emptied ileostomy. IVF infusing via PICC line. checked g tube residual less than 10 cc. pt. contracted on upper and lower extremities. cardiac pattern on sinus rhythm. ayala cath intact to OSD. on air mattress. HOB elevated, both heels up with pillow. side rails up. call light within reach, hourly rounds.
[2018-07-17] MEDS: SOTALOL HCL 80 MG TABLET GT SCH (21:01)
[2018-07-17] MEDS: CHOLECALCIFEROL (VITAMIN D3) 2,000 UNIT TABLET GT SCH (21:02)
[2018-07-17] MEDS: TAMSULOSIN HCL 0.4 MG CAP GT SCH (21:02)
[2018-07-17] MEDS: LACTULOSE 20 GM/30 ML UDC GT SCH (21:05)
--- NOTE | 2018-07-17 23:45 | NUR ---
NOTES: turn to sides, repositioned. opens eyes when stimulated. condition observed.
[2018-07-18] MEDS: HEPARIN 25,000 UNITS in 250 ML PREMIX IV PRN ×2 (00:17→14:32)
--- NOTE | 2018-07-18 00:18 | NUR ---
NOTES: APTT 43 sec. ,increase heparin drip by 100 unit, up to 1000 units/hr=10 cc/hr, double checked with charge nurse Mariela, will recheck APTT in 6 hours.
[2018-07-18 00:21] VITALS: BP_SYST 114
[2018-07-18] MEDS: IPRATROPIUM/ALBUTEROL SULFATE 3 ML AMPUL.NEB INH SCH ×4 (01:10→19:32)
--- NOTE | 2018-07-18 02:51 | NUR ---
NOTES; condition unchanged. pt. sleeping.
--- NOTE | 2018-07-18 04:00 | NUR ---
NOTES: emptied ileostomy and drained liquid greenish stool. repositioned on his right side.
--- NOTE | 2018-07-18 06:00 | NUR ---
NOTES; condition unchanged . IVF infusing, Heparin drip kept @ 1000 units/hr. pending APTT result. ayala cath, ileostomy intact. for further care and assistance.
[2018-07-18 06:44] LABS: HEMATOCRIT 29.6 % (36-54); HEMOGLOBIN 9.9 g/dL (14.0-18.0); MEAN CORPUSCULAR HEMOGLOBIN 30 pg (27-31); MEAN CORPUSCULAR HGB CONC 34 % (32-36); MEAN CORPUSCULAR VOLUME 89 fL (79.0-98.0); PLATELET COUNT (AUTO) 188 K/uL (130-430); RED BLOOD CELL COUNT(AUTO) 3.34 MIL/uL (4.2-6.2); RED CELL DISTRIBUTION WIDTH 17.2 % (9.0-15.0); WHITE BLOOD COUNT (AUTO) 8.7 K/uL (4.8-10.8)
[2018-07-18 07:18] LABS: ALANINE AMINOTRANSFERASE 29 U/L (12-78); ALBUMIN 1.7 g/dL (3.4-4.8); ANION GAP 4 (5-15); ASPARTATE AMINOTRANSFERASE 16 U/L (10-37); CALCIUM 9.4 mg/dL (8.4-11.0); CREATININE 0.56 mg/dL (0.55-1.30); FREE T4 (FREE THYROXINE) 0.7 ng/dL (0.6-1.6); GLUCOSE 124 mg/dL (70-99); POTASSIUM 3.7 mmol/L (3.5-5.1); SODIUM SERUM 150 mmol/L (136-145); THYROID STIMULATING HORMONE 0.45 uIu/mL (0.34-4.82); TOTAL BILIRUBIN 0.3 mg/dL (0.0-1.0); UREA NITROGEN, BLOOD 49 mg/dL (8-21)
--- NOTE | 2018-07-18 07:35 | NUR ---
endorsed pt. to incoming shift with nurse Gloria.
[2018-07-18 07:36] LABS: CHLORIDE 121 mmol/L (98-107)
[2018-07-18 08:02] LABS: TOTAL IRON BIND. CAPACITY 145 ug/dL (250-450)
[2018-07-18 08:10] VITALS: BP_SYST 100
--- NOTE | 2018-07-18 08:10 | NUR ---
OPENING NOTE REPORT IS RECEIVED FROM TOP CARRIER NURSE AND CARE IS ENDORSED TO MYSELF. PT IS RECEIVED SLEEPING. PT IS NONVERBAL BUT AWAKENS WITH LIGHT STIMULI. PT TAMAYO CATHETER 100ML OF REBEKA URINE. PT HAS GTUBE WITH APPROXIMATELY 50ML OF RESIDUALS. MORNING MEDICATION WERE GIVEN VIA GTUBE AND FLUSHED WITH 100ML OF WATER. PT IS ON HEPARIN DRIP CURRENTLY INFUSING AT 10ML/HR. WHITE BOARD IS UPDATED. CURRENT NEEDS ARE MET. BED IS AT LOWEST POSITION, CALL LIGHT WITHIN REACH, THREE SIDE RAILS UP, BED ALARM IS ON. WILL CONTINUE TO MONITOR.
[2018-07-18 08:25] LABS: ATYPICAL LYMPHOCYTES % 1 % (0-0); BAND % (MANUAL) 12 % (0-6); BASOPHILS % (MANUAL) 0 % (0-2); EOSINOPHILS % (MANUAL) 1 % (0-7); LYMPHOCYTES % (MANUAL) 11 % (20-46); MONOCYTES % (MANUAL) 7 % (0-11)
[2018-07-18] MEDS: METOCLOPRAMIDE HCL 10 MG/10 ML UDC GT SCH ×3 (08:59→20:42)
[2018-07-18] MEDS ORDERED: MULTIVITS,CA,MINERALS/IRON/FA 1 TABLET GT SCH (09:00)
[2018-07-18] MEDS: POLYETHYLENE GLYCOL 3350, 17 GM/ POWD.PACK GT SCH (09:00)
[2018-07-18] MEDS: LACTULOSE 20 GM/30 ML UDC GT SCH ×2 (09:00→20:42)
[2018-07-18] MEDS: ASCORBIC ACID 500 MG TABLET GT SCH ×2 (09:01→20:43)
[2018-07-18] MEDS: cefTRIAXone 1 GM in D5W 50 ML IV SCH (09:01)
[2018-07-18] MEDS: SOTALOL HCL 80 MG TABLET GT SCH ×2 (09:01→20:41)
[2018-07-18] MEDS: CHOLECALCIFEROL (VITAMIN D3) 2,000 UNIT TABLET GT SCH ×2 (09:01→20:42)
[2018-07-18] MEDS: MULTIVIT-MINERALS/FERROUS GLUC 15 ML UDC GT SCH (09:02)
[2018-07-18] MEDS: FINASTERIDE 5 MG TABLET (PROSCAR) GT SCH (09:06)
--- NOTE | 2018-07-18 09:37 | NUR ---
CALLED LAB HAVE NOT SEEN RESULTS FOR SCHEDULED PTT FROM 0600 MORNING LAB DRAW AND WAS ADVISED THAT THE ORDER WAS INPUT INCORRECTLY. CORRECTED THE ORDER AND LAB CAN STILL BE OBTAINED FROM THIS MORNING LAB DRAWS. WILL MONITOR FOR RESULTS AND ADJUST ACCORDING TO RESULTS.
[2018-07-18] MEDS ORDERED: D5W 1,000 ML IV SCH (10:00)
--- NOTE | 2018-07-18 10:10 | NUR ---
HEPARIN DRIP ADJUSTED PTT RETURNED AT 49.9 AND PER HEPARIN PROTOCOL, AN INCREASE OF 1ML/HR WAS MADE AND TIMED PTT WAS ENTERED FOR 1400. WILL CONTINUE TO MONITOR PT.
--- NOTE | 2018-07-18 10:34 | NUR ---
ROUNDS PT IS AWAKE AND ALERT. NO SIGNS OR SYMPTOMS OF DISTRESS OR SOB NOTED. HEPARIN ADJUSTED PER PROTOCOL AND INCREASED BY 1ML PER HOUR. HEPARIN IS NOW INFUSING AT 11ML/HR. PT WAS REPOSITIONED TO RIGHT SIDE. CURRENT NEEDS ARE MET. BED IS AT LOWEST POSITION, CALL LIGHT WITHIN REACH, THREE SIDE RAILS UP, BED ALARM IS ON. WILL CONTINUE TO MONITOR.
[2018-07-18 11:32] VITALS: BP_SYST 104
--- NOTE | 2018-07-18 12:21 | NUR ---
ROUNDS PT IS SLEEPING BUT EASILY AWAKEN. NO SIGNS OR SYMPTOMS OF DISTRESS OR SOB NOTED. PICC LINE DRESSING WAS CHANGED USING STERILE PROCEDURE. PT TOLERATED IT WELL. PT WAS REPOSITIONED TO RIGHT SIDE. CURRENT NEEDS ARE MET. BED IS AT LOWEST POSITION, CALL LIGHT WITHIN REACH, THREE SIDE RAILS UP, BED ALARM IS ON. WILL CONTINUE TO MONITOR. Addendum: 07/18/18 at 1224 by Juani Bustamante RN CORRECTION PT WAS REPOSITIONED TO LEFT SIDE.
--- NOTE | 2018-07-18 14:17 | NUR ---
ROUNDS PT IS SLEEPING BUT EASILY AWAKEN. NO SIGNS OR SYMPTOMS OF DISTRESS OR SOB NOTED. PT GIVEN 100ML OF WATER. PT REPOSITIONED TO RIGHT SIDE. CURRENT NEEDS ARE MET. BED IS AT LOWEST POSITION, CALL LIGHT WITHIN REACH, THREE SIDE RAILS UP, BED ALARM IS ON. WILL CONTINUE TO MONITOR.
[2018-07-18 15:48] VITALS: BP_SYST 104; BP_SYST 118
--- NOTE | 2018-07-18 16:07 | NUR ---
ROUNDS PT IS AWAKE AND ALERT. NO SIGNS OR SYMPTOMS OF DISTRESS OR SOB NOTED. PT HEPARIN DRIP WAS INCREASED TO 12ML/HR PER HEPARIN PROTOCOL. RESIDUALS WERE CHECKED AND LESS THAN 5ML OF RETURN. CHANGE GTUBE FEEDING AND TUBING AND FLUSHED WITH 100ML OF WATER. REPOSITIONED PT TO LEFT SIDE. CURRENT NEEDS ARE MET. BED IS AT LOWEST POSITION, CALL LIGHT WITHIN REACH, THREE SIDE RAILS UP, BED ALARM IS ON. WILL CONTINUE TO MONITOR.
[2018-07-18] MEDS ORDERED: LOPERAMIDE HCL 2 MG/10 ML UDC GT SCH ×2 (17:45→18:30)
[2018-07-18] MEDS: D5W 1,000 ML IV SCH (18:34)
--- NOTE | 2018-07-18 18:51 | NUR ---
PAGED I PAGED DR. DR. MARLEY @ [phone] I SPOKE WITH OG MARLEY CALLED BACK @ [phone]
--- NOTE | 2018-07-18 18:55 | NUR ---
DR. MARLEY CALL BACK SPOKE TO REGARDING OUR PHARMACY ONLY STOCKING IMODIUM CAPSULES. STATES ITS OKAY TO CHANGE FROM LIQUID FORM TO CAPSULE FORM VIA TUNJIUBE. PHARMACY CALLED AND CHANGED IT.
[2018-07-18] MEDS ORDERED: LOPERAMIDE HCL 2 MG CAPSULE GT SCH (19:36)
--- NOTE | 2018-07-18 19:38 | NUR ---
CLOSING NOTE PT IS AWAKE AND ALERT. NO SIGNS OR SYMPTOMS OF DISTRESS OR SOB NOTED. PT WAS REPOSITIONED TO RIGHT SIDE. CURRENT NEEDS ARE MET. BED IS AT LOWEST POSITION, CALL LIGHT WITHIN REACH, THREE SIDE RAILS UP, BED ALARM IS ON. WILL CONTINUE TO MONITOR UNTIL CARE AND REPORT IS GIVEN TO PRODUCT DEVELOPER NURSE.
--- NOTE | 2018-07-18 19:40 | NUR ---
Opening Notes Received patient in bed resting. AAOx1 and responds to name. Non verbal. O2 sat 99% on 2L NC. Johnston draining by gravity yellow urine. PICC line on the DAYSI double lumen infusing Fluids and heparin at 12ml/hr. PICC site clean dry and intact. GT Feeding at 50ml/hr with site clean and dry. Patient has ileostomy on the right lower quadrant with liquid. Oriented the patient to the room and use of the call light. Unable to assess patients understanding of the teaching. Safety precautions in place. Bed in low position and will monitor patient on rounds.
[2018-07-18 20:00] VITALS: BP_SYST 119
[2018-07-18] MEDS: LOPERAMIDE HCL 2 MG CAPSULE GT SCH (20:40)
[2018-07-18] MEDS: LEVOFLOXACIN 250 MG/D5W 50 ML IV SCH (20:40)
[2018-07-18] MEDS: TAMSULOSIN HCL 0.4 MG CAP GT SCH (20:42)
[2018-07-18] MEDS ORDERED: LOPERAMIDE HCL 2 MG CAPSULE ONE (20:43)
--- NOTE | 2018-07-18 22:05 | NUR ---
Patient in bed resting. Ileostomy output of 325ml liquid stool. No pain or respiratory distress. patient is attempting to remove NC from nose. Informed patient to keep in place. Safety precautions in place.
[2018-07-19] MEDS: HEPARIN 25,000 UNITS in 250 ML PREMIX IV PRN ×3 (00:08→13:52)
--- NOTE | 2018-07-19 00:36 | NUR ---
Patient in bed resting with o2 sat at 94% on 2L NC. No appearance of pain or respiratory distress.
[2018-07-19 00:52] VITALS: BP_SYST 113
[2018-07-19] MEDS: IPRATROPIUM/ALBUTEROL SULFATE 3 ML AMPUL.NEB INH SCH ×4 (01:01→19:49)
[2018-07-19] MEDS: D5W 1,000 ML IV SCH ×2 (02:31→13:54)
[2018-07-19] MEDS: LOPERAMIDE HCL 2 MG CAPSULE GT SCH ×4 (02:31→20:11)
[2018-07-19] MEDS ORDERED: LOPERAMIDE HCL 2 MG CAPSULE ONE (02:36)
--- NOTE | 2018-07-19 02:50 | NUR ---
Patient in bed resting comfortably. No pain or acute respiratory distress. Will continue to monitor on rounds.
--- NOTE | 2018-07-19 04:48 | NUR ---
Patient awake in bed with no appearance of pain or respiratory distress. O2 sat at 97% on 2L NC. Will monitor on rounds.
[2018-07-19 05:34] LABS: BASOPHILS % (AUTO) 0.5 % (0.0-2.0); EOSINOPHILS # (AUTO) 0.7 K/uL (0.0-0.4); EOSINOPHILS % (AUTO) 10.4 % (0.0-4.0); HEMATOCRIT 26.1 % (36-54); HEMOGLOBIN 8.5 g/dL (14.0-18.0); LYMPHOCYTES # (AUTO) 1.4 K/uL (1.0-5.5); LYMPHOCYTES % (AUTO) 20.3 % (20.5-51.5); MEAN CORPUSCULAR HEMOGLOBIN 29 pg (27-31); MEAN CORPUSCULAR HGB CONC 33 % (32-36); MEAN CORPUSCULAR VOLUME 89 fL (79.0-98.0); MONOCYTES # (AUTO) 0.3 K/uL (0.0-1.0); MONOCYTES % (AUTO) 5.1 % (1.7-9.3); NEUTROPHILS # (AUTO) 4.4 K/uL (1.8-7.7); NEUTROPHILS % (AUTO) 63.7 % (40.0-70.0); PLATELET COUNT (AUTO) 182 K/uL (130-430); RED BLOOD CELL COUNT(AUTO) 2.95 MIL/uL (4.2-6.2); RED CELL DISTRIBUTION WIDTH 16.8 % (9.0-15.0); WHITE BLOOD COUNT (AUTO) 6.8 K/uL (4.8-10.8)
[2018-07-19 05:44] LABS: ANION GAP 8 (5-15); CALCIUM 9.1 mg/dL (8.4-11.0); CHLORIDE 116 mmol/L (98-107); CREATININE 0.31 mg/dL (0.55-1.30); GLUCOSE 105 mg/dL (70-99); POTASSIUM 3.3 mmol/L (3.5-5.1); SODIUM SERUM 147 mmol/L (136-145); UREA NITROGEN, BLOOD 33 mg/dL (8-21)
--- NOTE | 2018-07-19 07:00 | NUR ---
CLosing Notes Patient in bed resting. Johnston catheter draining by gravity yellow urine. Ileostomy site clean and intact. Upper picc line dressing clean dry and intact with no swelling or sign of infection. GT feeding had 5ml residual and flushed q6 hours with 100ml of h2o. Patient repositioned q2 hours and all needs have been met. Will endorse to oncoming nurse.
--- NOTE | 2018-07-19 07:26 | NUR ---
Patient opens eyes, track occasionally. On 2L NC. Gtube feeding is running at 50ml/hr. Right ileostomy noted, draining brownish liquid. PICC at right upper arm, with D5W at 40ml/hr. Heparin drip is infusing at 12ml/hr. Call light in place, bed locked at the lowest position, will continue to monitor.
[2018-07-19 08:00] VITALS: BP_SYST 110
--- NOTE | 2018-07-19 08:25 | NUR ---
Nutrition Update Osman Scale 11 noted. Pt admitted for acute respiratory failure. Diet: Pivot 1.5 at 50 ml/hr, Free Water Flush: 100 ML Q6H via GT BMI: 16.3 kg/m2 RD to follow per nutrition care standards.
[2018-07-19] MEDS: FINASTERIDE 5 MG TABLET (PROSCAR) GT SCH (09:04)
[2018-07-19] MEDS: LACTULOSE 20 GM/30 ML UDC GT SCH (09:05)
[2018-07-19] MEDS: POLYETHYLENE GLYCOL 3350, 17 GM/ POWD.PACK GT SCH (09:05)
[2018-07-19] MEDS: MULTIVIT-MINERALS/FERROUS GLUC 15 ML UDC GT SCH (09:07)
[2018-07-19] MEDS: ASCORBIC ACID 500 MG TABLET GT SCH ×2 (09:07→20:16)
[2018-07-19] MEDS: METOCLOPRAMIDE HCL 10 MG/10 ML UDC GT SCH ×3 (09:07→20:11)
[2018-07-19] MEDS: SOTALOL HCL 80 MG TABLET GT SCH ×2 (09:08→20:16)
[2018-07-19] MEDS: cefTRIAXone 1 GM in D5W 50 ML IV SCH (09:08)
[2018-07-19] MEDS: CHOLECALCIFEROL (VITAMIN D3) 2,000 UNIT TABLET GT SCH ×2 (09:08→20:11)
[2018-07-19] MEDS ORDERED: POTASSIUM CHLORIDE 20 MEQ/PKT PACKET PO ONE (10:00)
--- NOTE | 2018-07-19 10:03 | NUR ---
PATIENT IS TURNED AND REPOSITIONED FOR COMFORT.
[2018-07-19 12:00] VITALS: BP_SYST 119
--- NOTE | 2018-07-19 12:18 | NUR ---
Dietitian Recommendations * Recommend continuing Pivot 1.5 at 50 ml/hr, Free Water Flush: 100 ML Q6H via GT per MD Provides: 1800 kcal/day, 113 gm protein/day, and 1311 ml free water/day Meets: 105% of upper end of estimated caloric needs and 153% of upper end of estimated protein needs LP, RD Please refer to Nutrition Assessment for details.
--- NOTE | 2018-07-19 14:25 | NUR ---
POA is unable to be contacted via phone; Yinka Granger is also called, but the phone number indicated for the patient's POA is the same as the one from patient's chart. Dr. Banda is informed and CTA Chest is rescheduled for tomorrow until POA is available to be contacted.
[2018-07-19 16:01] VITALS: BP_SYST 109
--- NOTE | 2018-07-19 16:30 | NUR ---
NEW ILEOSTOMY POUCH IS CHANGED FOR THE PATIENT. HE TOLERATED WITHOUT APPARENT DISTRESS
--- NOTE | 2018-07-19 18:18 | NUR ---
PATIENT'S RESTING. TURNED AND REPOSITIONED FOR COMFORT. NEEDS MET. WILL DELEGATE TO NEXT SHIFT.
--- NOTE | 2018-07-19 19:05 | NUR ---
Initial Notes Received in bed awake alert oriented x1. No s/s of any distress noted. PICC noted XENIA both no infiltrate and with good blood return. Hep drip noted running at 12ml/hr. G tube patent with 10cc residual. Johnston cath noted with yellow urine amounting to 100cc in the bag . All extremities are stiff and showing contraction. Call light in reach, will cont to monitor.
[2018-07-19 19:10] VITALS: BP_SYST 114
--- NOTE | 2018-07-19 19:10 | NUR ---
Initial Notes Received patient in bed with mother at bedside. Patient is bed awake alert oriented x1. No s/s of any distress noted. IV noted to L upper arm G 20 and R f/a g 22 both no infiltrate and with good blood return. Hep drip noted running at 12ml/hr. G tube patent with 10cc residual. Johnston cath noted with yellow urine amounting to 100cc in the bag . All extremities are stiff and showing contractio. Call light in reach, will cont to monitor. Addendum: 07/19/18 at 1939 by Jose Mcgee RN Correction wrong patient
[2018-07-19] MEDS: TAMSULOSIN HCL 0.4 MG CAP GT SCH (20:11)
[2018-07-19] MEDS: LEVOFLOXACIN 250 MG/D5W 50 ML IV SCH (20:17)
--- NOTE | 2018-07-19 21:10 | NUR ---
Rounds Patient is resting at this time. Partial bed bath perform with Gabriel LEMUS. No s/s of any distress noted. Call light in reach, will cont to monitor.
--- NOTE | 2018-07-19 23:00 | NUR ---
Dr Day at bedside Dr Day check patient at bedside. No order given. Addendum: 07/19/18 at 2332 by Jose Mcgee RN Correction: pls disregard wrong patient
--- NOTE | 2018-07-19 23:10 | NUR ---
Rounds Reposition patient in bed. No c/o pain and no s/s of any distress noted. Call light in reach, will cont to monitor.
--- NOTE | 2018-07-19 23:25 | NUR ---
Dr Hays replace Supra cath Dr Hays replace suprapubic cath. Use 22F and 10cc balloon. Dressing was also applied. Tolerated well. Will cont to monitor. Addendum: 07/19/18 at 2332 by Jose Mcgee RN correction:pls disregard wrong patient
[2018-07-20 00:12] VITALS: BP_SYST 115
[2018-07-20] MEDS: IPRATROPIUM/ALBUTEROL SULFATE 3 ML AMPUL.NEB INH SCH ×4 (00:16→19:42)
--- NOTE | 2018-07-20 01:10 | NUR ---
Rounds Patient is resting at this tiem.Reposition in bed for comfort. No s/s of any distress noted. Call light in reach. Will cont to monitor.
[2018-07-20] MEDS: LOPERAMIDE HCL 2 MG CAPSULE GT SCH ×3 (02:04→22:02)
[2018-07-20] MEDS: D5W 1,000 ML IV SCH (02:16)
--- NOTE | 2018-07-20 03:10 | NUR ---
Rounds Patient is resting comfortably in bed at this time. No s/s of any distress and no c/o pain noted. Call light in reach. Will cont to monitor.
[2018-07-20 06:29] LABS: HEMATOCRIT 26.8 % (36-54); HEMOGLOBIN 8.9 g/dL (14.0-18.0); MEAN CORPUSCULAR HEMOGLOBIN 29 pg (27-31); MEAN CORPUSCULAR HGB CONC 33 % (32-36); MEAN CORPUSCULAR VOLUME 88 fL (79.0-98.0); PLATELET COUNT (AUTO) 202 K/uL (130-430); RED BLOOD CELL COUNT(AUTO) 3.03 MIL/uL (4.2-6.2); RED CELL DISTRIBUTION WIDTH 16.8 % (9.0-15.0); WHITE BLOOD COUNT (AUTO) 6.1 K/uL (4.8-10.8)
--- NOTE | 2018-07-20 06:32 | NUR ---
Called Son but not available Called Michael Israel, aye but not yet present at work. Try again at 0800 as per co worker. Will endorse to AM shift.
[2018-07-20 06:40] LABS: ANION GAP 4 (5-15); CHLORIDE 109 mmol/L (98-107); CREATININE 0.38 mg/dL (0.55-1.30); GLUCOSE 125 mg/dL (70-99); POTASSIUM 3.7 mmol/L (3.5-5.1); SODIUM SERUM 138 mmol/L (136-145); UREA NITROGEN, BLOOD 25 mg/dL (8-21)
--- NOTE | 2018-07-20 06:55 | NUR ---
End of shift notes Patient is resting at this time. No s/s of any distress and no c/o pain noted. All needs met and anticipated by noc nurses. Call light in reach, bed alarm on and side rails up x3 for safety. Will endorse care to AM nurse
[2018-07-20 08:00] VITALS: BP_SYST 105
--- NOTE | 2018-07-20 08:00 | NUR ---
initial notes rec patient with hob elevated, awake opens eyes but non verbally responsive. picc line on the r upper arm in place. no infiltration oted. call light within reached but unable to call light. pt close to the nurses station. bed in low position and side rails up and locked. gt feeding derrick well and no residual noted. will continue to monitor patient.
[2018-07-20 09:23] LABS: ATYPICAL LYMPHOCYTES % 0 % (0-0); BAND % (MANUAL) 4 % (0-6); BASOPHILS % (MANUAL) 0 % (0-2); EOSINOPHILS % (MANUAL) 10 % (0-7); LYMPHOCYTES % (MANUAL) 29 % (20-46); MONOCYTES % (MANUAL) 5 % (0-11)
[2018-07-20] MEDS: cefTRIAXone 1 GM in D5W 50 ML IV SCH (09:54)
[2018-07-20] MEDS: FINASTERIDE 5 MG TABLET (PROSCAR) GT SCH (09:55)
[2018-07-20] MEDS: CHOLECALCIFEROL (VITAMIN D3) 2,000 UNIT TABLET GT SCH ×2 (09:55→22:03)
[2018-07-20] MEDS: ASCORBIC ACID 500 MG TABLET GT SCH ×2 (09:55→22:02)
[2018-07-20] MEDS: METOCLOPRAMIDE HCL 10 MG/10 ML UDC GT SCH ×3 (09:55→22:03)
[2018-07-20] MEDS: MULTIVIT-MINERALS/FERROUS GLUC 15 ML UDC GT SCH (09:56)
[2018-07-20] MEDS: SOTALOL HCL 80 MG TABLET GT SCH ×2 (09:56→21:00)
--- NOTE | 2018-07-20 10:00 | NUR ---
rounds sleeps at intervals.. no sob noted. turned repositioned for comfort. gt care was done. skin is intact around. cleansed with ns and covered with 4x4 dressing.
[2018-07-20] MEDS: HEPARIN 25,000 UNITS in 250 ML PREMIX IV PRN (11:50)
[2018-07-20 12:00] VITALS: BP_SYST 108
--- NOTE | 2018-07-20 12:00 | NUR ---
rounds seen by dr horvath at bedside. continue to sleep at interval. resting comfortably.
--- NOTE | 2018-07-20 14:00 | NUR ---
rounds turned repositioned for comfort. call light at bedside. no acute distress noted. gt feeding derrick well.
[2018-07-20] MEDS ORDERED: IOHEXOL 350 mgI/mL, 150 ML INFUS..BTL IV ONE (15:06)
[2018-07-20 16:00] VITALS: BP_SYST 113
--- NOTE | 2018-07-20 16:00 | NUR ---
rounds pt was taken for the ct angio chest. nick from [facility] was called and faxed consent and got it back. went to xray via bed and back. no acute distress noted.
[2018-07-20] MEDS ORDERED: EPOETIN ALFA 4,000 UNITS/ML VIAL SUBCUT ONE (16:45)
[2018-07-20] MEDS ORDERED: LACTOBACILLUS RHAMNOSUS GG 1 CAP CAPSULE GT ONE (17:00)
--- NOTE | 2018-07-20 18:30 | NUR ---
closing notes seen by dr wilson and with orders. heparin was dc/d no bleeding noted. gt feeding derrick well and no residual noted. bed in low position and side rails up and locked. call lightcwithin reached and patient close to the nurses station. turned repositioned for comfort. no acute distress noted.
[2018-07-20] MEDS: SOD FERRIC GLUC COMPLEX/SUC 125 MG in NS 100 ML IV SCH (18:50)
--- NOTE | 2018-07-20 19:48 | NUR ---
Initial note: Received handoff report from dayshift RN at patient's bedside. Patient is sleeping in bed, no signs or symptoms of acute distress noted. DAYSI PICC line noted, site is patent and benign with good blood return. Tubefeeding in place, patient tolerating tubefeeding well with gastric residual of 20 ML. Ileostomy noted with 50 ML of liquid stool in ileostomy bag. Safety and fall precautions in place. Call light is with patient. Will continue with plan of care.
[2018-07-20 20:17] VITALS: BP_SYST 105
--- NOTE | 2018-07-20 22:01 | NUR ---
Rounds: Patient is awake in bed, no signs or symptoms of acute distress noted. Provided oral care. Safety and fall precautions in place, call light is with patient. Will continue monitoring.
[2018-07-20] MEDS: TAMSULOSIN HCL 0.4 MG CAP GT SCH (22:02)
[2018-07-20] MEDS: LACTOBACILLUS RHAMNOSUS GG 1 CAP CAPSULE GT SCH (22:02)
[2018-07-20] MEDS: LEVOFLOXACIN 250 MG/D5W 50 ML IV SCH (22:08)
[2018-07-20] MEDS: ENOXAPARIN SODIUM 40 MG/0.4 ML SYRINGE SUBCUT SCH (22:10)
[2018-07-20 23:10] VITALS: BP_SYST 102
--- NOTE | 2018-07-21 00:04 | NUR ---
Rounds: Patient is asleep, does not show signs or symptoms of acute distress. Safety and fall precautions in place, call light is with patient. Will continue monitoring.
[2018-07-21] MEDS: IPRATROPIUM/ALBUTEROL SULFATE 3 ML AMPUL.NEB INH SCH ×4 (00:52→19:52)
--- NOTE | 2018-07-21 02:06 | NUR ---
Rounds: Patient is in bed sleeping, no signs or symptoms of acute distress noted. Breathing is even and unlabored. Call light is with patient. Safety and fall precautions in place. Will continue to monitor.
--- NOTE | 2018-07-21 04:05 | NUR ---
Rounds: Patient is asleep in bed. Does not show any signs or symptoms of acute distress. Bed locked in lowest position, side rails raised, bed alarm on. Call light is with patient. Will continue to monitor.
[2018-07-21] MEDS: LOPERAMIDE HCL 2 MG CAPSULE GT SCH ×2 (05:05→14:22)
--- NOTE | 2018-07-21 06:19 | NUR ---
Closing note: Patient is awake in bed, does not show signs or symptoms of acute distress. Right upper arm PICC line remains patent and benign. Tubefeeding flowing well to patient's g-tube. Ileostomy remains patent and intact. Johnston catheter remains draining clear yellow urine. All needs met and attended to. Safety and fall precautions in place. Call light is with patient. Will endorse care to dayshift RN.
[2018-07-21 06:46] LABS: EOSINOPHILS # (AUTO) 0.6 K/uL (0.0-0.4); LYMPHOCYTES # (AUTO) 1.4 K/uL (1.0-5.5); MONOCYTES # (AUTO) 0.3 K/uL (0.0-1.0)
[2018-07-21 07:04] LABS: BASOPHILS % (AUTO) 0.3 % (0.0-2.0); EOSINOPHILS % (AUTO) 9.6 % (0.0-4.0); HEMATOCRIT 28.2 % (36-54); HEMOGLOBIN 9.5 g/dL (14.0-18.0); LYMPHOCYTES % (AUTO) 22.8 % (20.5-51.5); MEAN CORPUSCULAR HEMOGLOBIN 29 pg (27-31); MEAN CORPUSCULAR HGB CONC 34 % (32-36); MEAN CORPUSCULAR VOLUME 86 fL (79.0-98.0); MONOCYTES % (AUTO) 5.2 % (1.7-9.3); NEUTROPHILS # (AUTO) 3.9 K/uL (1.8-7.7); NEUTROPHILS % (AUTO) 62.1 % (40.0-70.0); PLATELET COUNT (AUTO) 211 K/uL (130-430); RED BLOOD CELL COUNT(AUTO) 3.27 MIL/uL (4.2-6.2); WHITE BLOOD COUNT (AUTO) 6.2 K/uL (4.8-10.8)
[2018-07-21 07:25] LABS: ANION GAP 6 (5-15); CALCIUM 8.9 mg/dL (8.4-11.0); CHLORIDE 106 mmol/L (98-107); CREATININE 0.37 mg/dL (0.55-1.30); GLUCOSE 117 mg/dL (70-99); POTASSIUM 3.8 mmol/L (3.5-5.1); SODIUM SERUM 138 mmol/L (136-145); UREA NITROGEN, BLOOD 22 mg/dL (8-21)
--- NOTE | 2018-07-21 07:30 | NUR ---
Opening Note Patient sleeping in bed, no signs of distress or discomfort on room air. Vital signs taken. g tube infusing. PICC line to right upper arm patent and on saline lock. Extensions of RN, FINANCIAL SERVICES DIRECTOR and pharmacist in charge owner written on white board. Plan of care discussed with patient. Patient confused and unable to verbalize understanding. Safety precautions in order, call light in reach and bed alarm on.
[2018-07-21] MEDS: cefTRIAXone 1 GM in D5W 50 ML IV SCH (08:38)
[2018-07-21] MEDS: TAMSULOSIN HCL 0.4 MG CAP GT SCH ×2 (08:38→21:01)
[2018-07-21] MEDS: METOCLOPRAMIDE HCL 10 MG/10 ML UDC GT SCH ×3 (08:38→20:59)
[2018-07-21] MEDS: ASCORBIC ACID 500 MG TABLET GT SCH ×2 (08:39→21:01)
[2018-07-21] MEDS: SOTALOL HCL 80 MG TABLET GT SCH ×2 (08:39→21:01)
[2018-07-21] MEDS: MULTIVIT-MINERALS/FERROUS GLUC 15 ML UDC GT SCH (08:39)
[2018-07-21] MEDS: LACTOBACILLUS RHAMNOSUS GG 1 CAP CAPSULE GT SCH ×3 (08:39→21:00)
[2018-07-21] MEDS: CHOLECALCIFEROL (VITAMIN D3) 2,000 UNIT TABLET GT SCH ×2 (08:40→21:01)
[2018-07-21] MEDS: FINASTERIDE 5 MG TABLET (PROSCAR) GT SCH (08:40)
[2018-07-21 08:45] VITALS: BP_SYST 102
--- NOTE | 2018-07-21 09:40 | NUR ---
REPOSITIONED PATIENT REPOSITIONED IN BED FOR COMFORT.
--- NOTE | 2018-07-21 11:26 | NUR ---
PATIENT RESTING: Patient resting quietly. No acute distress noted. Vital signs within normal range.
[2018-07-21 12:15] VITALS: BP_SYST 88
--- NOTE | 2018-07-21 14:02 | NUR ---
WOUND EVALUATION: Wound Consult received from Dr. Banda. Thank you, Dr. Banda, for the consult. Patient received in a Low Bed with an Isoflex MEÑO mattress with low air loss therapy, awake, nonverbal, nonresponsive to verbal commands. Patient is unable to turn in bed independently. Osman Score is a 12. Past Medical History: Intellectually Impaired, G-tube with feeding, Dementia, benign prostatic hypertrophy, hypertension, dysphagia, COPD, cerebral palsy, recent pneumonia, Atrial Fibrillation, Diverting Colostomy, Sacral pressure ulcer. Recent Labs: WBC 6.2, RBC 3.27, hemoglobin 9.5, hematocrit 28.2, BUNs 22, creatinine 0.37, glucose 117, iron 22, TIBC 145, albumin 1.7, PTT 55.6. Intrinsic factors that delay wound healing: Severe Hypoalbuminemia. Extrinsic factors that delay wound healing: Immobility. Microbiology: Urine culture results negative. MRSA screen results negative. Blood culture results 2 in progress. Wound Assessment: 1. Right Sacral/Coccygeal/Buttock Area: Unstageable pressure ulcer, present on admission. Wound bed has 10% yellow slough, 40% black tissue, 50% red tissue. No odor, no drainage. Periwound has maceration. Michelle-wound and surrounding tissue has scar tissue. Wound measures 9.0 cm x 6.0 cm x 0.8 cm. Recommend: Cleanse wound with normal saline. Place moisture barrier cream onto michelle-wound. Apply Venelex ointment onto wound bed. Cover with non-adhesive foam dressings. Secure with transparent dressings. Perform wound care daily, and as needed for dressing soiling or dislodgement. 2. Scrotum: Erythema from IAD, present on admission. No odor, no drainage. Surrounding tissue has scar tissue. Recommend: Cleanse site with normal saline. Pat dry. Apply moisture barrier cream to site. Perform site care qid, and as needed for soiling. 3. Right Medial Malleolus: Scar tissue with dark discoloration, present on admission. Recommend: Cover site with hydrocolloid dressing. Perform site care q 5 days, and as needed for dressing soiling or dislodgement. Offload elevate and float foot with one pillow lengthwise at all times. Do not allow foot or malleoli to touch bed or other surfaces at any time. Also recommend: Reposition patient side to side only every 2 hours with pillow support, and off-load pressure areas with pillows for pressure re-distribution. Offload, elevate and float bilateral heels with one pillow lengthwise under each extremity at all times. Perform skin care and monitor skin integrity Q shift. Use moisture barrier cream on buttocks and other moisture susceptible areas QID and as needed for soiling. Maintain patient on a low air-loss mattress. Recommend surgical consult.
--- NOTE | 2018-07-21 14:07 | NUR ---
Wound care Provided at this time with environmental technicianEnrique.
[2018-07-21 16:11] VITALS: BP_SYST 98
--- NOTE | 2018-07-21 16:45 | NUR ---
Tube feeding new bottle of tube feeding started at this time. Residuals of 10ml noted.
[2018-07-21] MEDS: SOD FERRIC GLUC COMPLEX/SUC 125 MG in NS 100 ML IV SCH (16:55)
[2018-07-21] MEDS ORDERED: DIPHENOXYLATE HCL/ATROP SULF 2.5 MG TAB PO ONE (18:00)
[2018-07-21] MEDS ORDERED: LEVO250T2 PO (18:10)
[2018-07-21] MEDS ORDERED: BALS60OI TP (18:10)
[2018-07-21] MEDS ORDERED: MULT9LIQ7 GT (18:10)
[2018-07-21] MEDS ORDERED: TAMS0.4C96 GT (18:10)
[2018-07-21] MEDS ORDERED: IPRA3AMP9 INH (18:10)
[2018-07-21] MEDS ORDERED: LOM2.5 PO (18:11)
--- NOTE | 2018-07-21 18:19 | NUR ---
Closing Note Patient a/ox1, non-verbal. No complaints of pain or difficulty breathing on room air. All needs met throughout shift. Will endorse plan of care to noc shift. 450ml emptied from Ileostomy, Johnston catheter draining to gravity. Safety precautions in order, call light in reach and bed alarm on.
--- NOTE | 2018-07-21 19:30 | NUR ---
ROUNDS PATIENT RESTING COMFORTABLY IN BED, NOT IN DISTRESS, VITALS STABLE, NON VERBAL. NO SIGNS OF PAIN AND DISCOMFORT NOTED. ASSESSMENT DONE AND DOCUMENTED. SEE FLOWSHEET. NEEDS ATTENDED TO. REPOSITIONED AND MADE COMFORTABLE. SAFETY AND FALL PRECAUTION MEASURES IN PLACED. BED ALARM ON. BED IN LOW AND LOCKED POSITION. CALL LIGHT PLACED WITHIN REACH.
[2018-07-21] MEDS: LEVOFLOXACIN 250 MG/D5W 50 ML IV SCH (21:00)
[2018-07-21] MEDS ORDERED: DIPHENOXYLATE HCL/ATROP SULF 2.5 MG TAB PO SCH (21:00)
[2018-07-21] MEDS: ENOXAPARIN SODIUM 40 MG/0.4 ML SYRINGE SUBCUT SCH (21:03)
[2018-07-21 21:11] VITALS: BP_SYST 110
--- NOTE | 2018-07-21 21:15 | NUR ---
NOTES PATIENT ACCEPTED BACK TO [facility] AND TRANSFERRED ORDERED. CALLED AND GIVE REPORT TO NURSE CUEVAS. DISCHARGE PACKET DONE. PATIENT PREPARED FOR DISCHARGE. WILL CONTINUE TO MONITOR.
--- NOTE | 2018-07-21 21:41 | NUR ---
CLOSING NOTES PATIENT DISCHARGE TO [facility] ORDERED VIA AMBULANCE WITH STABLE VITAL SIGNS. NO SIGNS OF ANY PAIN AND DISCOMFORT NOTED. ALL NEEDS ATTENDED TO. PICC LINE ON THE RIGHT UPPER ARM PATENT WITH DRESSING, CLEAN, DRY AND INTACT.
[2018-07-22] MEDS ORDERED: BALSAM PERU/CASTOR OIL 60 GM OINT...G. TP SCH (09:00)
== END 2018-07-21 21:41 | DRG 137 ==
LOC: SED 11:49 → STU 13:59 → SMU 07-20 17:09
PROVIDERS: ADMIT Internal Medicine; ATTEND Internal Medicine
DX: J69.0 Pneumonitis due to inhalation of food and vomit (principal); J96.01 Acute respiratory failure with hypoxia; E43 Unspecified severe protein-calorie malnutrition; L89.159 Pressure ulcer of sacral region, unspecified stage; E87.0 Hyperosmolality and hypernatremia; I11.0 Hypertensive heart disease with heart failure; E87.8 Other disorders of electrolyte and fluid balance, not elsewhere classified; I50.9 Heart failure, unspecified; I48.0 Paroxysmal atrial fibrillation; R13.10 Dysphagia, unspecified; E86.0 Dehydration; F03.90 Unspecified dementia, unspecified severity, without behavioral disturbance, psychotic disturbance, mood disturbance, and anxiety; G80.9 Cerebral palsy, unspecified; J44.9 Chronic obstructive pulmonary disease, unspecified; K21.9 Gastro-esophageal reflux disease without esophagitis; N28.9 Disorder of kidney and ureter, unspecified; D50.9 Iron deficiency anemia, unspecified; R79.1 Abnormal coagulation profile; N40.0 Benign prostatic hyperplasia without lower urinary tract symptoms; F79 Unspecified intellectual disabilities; Z79.899 Other long term (current) drug therapy; Z93.1 Gastrostomy status; Z93.2 Ileostomy status; Z87.01 Personal history of pneumonia (recurrent); Z93.3 Colostomy status; Z68.1 Body mass index [BMI] 19.9 or less, adult
CPT/HCPCS: 36415; 36600; 71045; 71275; 80048; 80053; 81000-TC; 82803-TC; 83540-TC; 83550-TC; 83605; 83880; 84439; 84443-TC; 84484; 85007; 85025; 85027; 85379; 85610-TC; 85730-TC; 87040-TC; 87081; 87086; 93005; 93970; 94640; 94760; 96365; 96366; 99285; A5061; J0696; J0885; J1644; J1650; J1956; J2916; J3370; J7030; J7050; J7060; J7620; J8597; Q9967

== ENCOUNTER 2018-08-20 17:45 | Emergency (ER) | payer MEDICARE, MEDICAID ==
[~2018-08-20] VITALS: Ht 154.9 cm; Wt 54.4 kg
[2018-08-20 17:45] VITALS: BP_SYST 134
[~2018-08-20 17:45] MED LIST changes: -ACYC400T PO; +ASCO-339 GT; +BALS60OI TP; +BISA10SU61 RC; -DIF100 IVPB; +IPRA3AMP9 INH; +LEVO250T2 PO; +LOM2.5 PO; +MOM GT; +MULT9LIQ7 GT; +TAMS0.4C96 GT; +ZINC50TA37 GT; +[UNRECOGNIZED DRUG - CODE] GT
--- NOTE | 2018-08-20 17:45 | NUR ---
Patient to ER bed 5 to gown for evaluation. Side rails up.
--- NOTE | 2018-08-20 17:50 | NUR ---
Patient brought in by EMS, BLS, for decreased oxygen saturation. Patient oxygen saturation at 84% on 4L NC. Patient tachycardic at 134. Patient increased respiratory rate at 32bpm. Patient arrived from [facility]. Informed MD of patient condition.
--- NOTE | 2018-08-20 17:52 | NUR ---
ER at bedside examining patient.
[2018-08-20] MEDS ORDERED: ALBUTEROL SULFATE 0.083% 2.5 MG/3 ML VIAL.NEB INH ONE (18:00)
[2018-08-20] MEDS ORDERED: IPRATROPIUM BROM 0.5 MG/2.5 ML VIAL.NEB (ATROVENT) INH ONE (18:00)
--- NOTE | 2018-08-20 18:06 | NUR ---
Blood drawn from PICC line. Wasted 10mL, followed by 30mL draw. Blood cultures x2, lactic acid x1, and labs ordered. Will follow up regarding results. Patient tolerated well.
[2018-08-20] MEDS ORDERED: ACET-2634 GT (18:16)
[2018-08-20] MEDS ORDERED: ZIN220 GT (18:16)
--- NOTE | 2018-08-20 18:18 | NUR ---
Medication reconciliation completed with information provided by patient. Any prior medication reconciliation on file was reviewed and corrected.
[2018-08-20 18:31] LABS: BASOPHILS # (AUTO) 0.1 K/uL (0.0-0.2); BASOPHILS % (AUTO) 0.4 % (0.0-2.0); EOSINOPHILS # (AUTO) 0.1 K/uL (0.0-0.4); EOSINOPHILS % (AUTO) 0.9 % (0.0-4.0); HEMATOCRIT 35.9 % (36-54); HEMOGLOBIN 11.2 g/dL (14.0-18.0); LYMPHOCYTES # (AUTO) 1.3 K/uL (1.0-5.5); LYMPHOCYTES % (AUTO) 8.1 % (20.5-51.5); MEAN CORPUSCULAR HEMOGLOBIN 27 pg (27-31); MEAN CORPUSCULAR HGB CONC 31 % (32-36); MEAN CORPUSCULAR VOLUME 87 fL (79.0-98.0); MONOCYTES # (AUTO) 0.8 K/uL (0.0-1.0); MONOCYTES % (AUTO) 4.9 % (1.7-9.3); NEUTROPHILS # (AUTO) 13.7 K/uL (1.8-7.7); NEUTROPHILS % (AUTO) 85.7 % (40.0-70.0); PLATELET COUNT (AUTO) 327 K/uL (130-430); RED BLOOD CELL COUNT(AUTO) 4.11 MIL/uL (4.2-6.2); RED CELL DISTRIBUTION WIDTH 15.6 % (9.0-15.0)
[2018-08-20 18:39] LABS: CALCIUM 10.2 mg/dL (8.4-11.0); CHLORIDE 115 mmol/L (98-107); CREATININE 0.57 mg/dL (0.55-1.30); GLUCOSE 116 mg/dL (70-99); POTASSIUM 4.1 mmol/L (3.5-5.1); SODIUM SERUM 147 mmol/L (136-145); UREA NITROGEN, BLOOD 43 mg/dL (8-21)
[2018-08-20 18:41] LABS: ANION GAP < 3 (5-15)
[2018-08-20 18:44] LABS: ALANINE AMINOTRANSFERASE 30 U/L (12-78); ALBUMIN 2.1 g/dL (3.4-4.8); ASPARTATE AMINOTRANSFERASE 20 U/L (10-37); TOTAL BILIRUBIN 0.3 mg/dL (0.0-1.0)
[2018-08-20 18:45] LABS: PROTHROMBIN TIME 10.4 SECS (9.5-12.5)
--- NOTE | 2018-08-20 18:50 | NUR ---
ATTEMPTED TO CALL FAMILY FOR CODE STATUS CONFIRMATION, SPOKE WITH NITIN ALMEIDA. NITIN STATES THAT HE IS CAREGIVER AT [facility] AND HAS TAKEN CARE OF PT FOR LAST 10 YEARS, PT WAS A RESIDENT SINCE 1973. NITIN STATES THAT HE HAS NEVER SEEN ANY FAMILY FOR PT AND THAT PT IS A GRECO OF THE COURT WITH INTELLECTUALLY HANDICAPPED. 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 NUMBERS ARE LISTED IN THE CHART. PT HAS A VALID POLST.
--- NOTE | 2018-08-20 19:05 | NUR ---
Patient saturation low at 84% on breathing treatment. MD assessed patient and patient needs to be intubated. Patient was given 10mg Vecuronium Jenkinjones. Dr. Hays intubated, RT at bedside, ventilator at bedside. Patient intubated with 7.5. Patient vitals remain tachycardic. Patient oxygen saturation post intubation is 99%. Initial settings: AC 14; TV 500; 0 PEEP; 100% FiO2.
[2018-08-20] MEDS ORDERED: PROPOFOL DRIP 100 ML IV ONE (19:10)
[2018-08-20] MEDS ORDERED: NACL 0.9% 1,000 ML IV ONE (19:15)
[2018-08-20] MEDS ORDERED: PIPERACILLIN/TAZO 3.375 GM in NS 50 ML IV ONE (19:15)
[2018-08-20] MEDS ORDERED: VECURONIUM BROMIDE 10 MG/VIAL (NORCURON) IVP ONE (19:15)
[2018-08-20] MEDS ORDERED: VANCOMYCIN HCL 1,000 MG in NS 250 ML IV ONE (19:15)
--- NOTE | 2018-08-20 19:17 | NUR ---
code started. see code sheet.
--- NOTE | 2018-08-20 19:32 | NUR ---
Patient was pronounced at this time by MD Dr. Hays.
--- NOTE | 2018-08-20 19:55 | NUR ---
[facility] by Abdulaziz Luque RN. Case # [id number]
--- NOTE | 2018-08-20 20:01 | NUR ---
senior telecommunications engineer contacted [phone], not senior telecommunications engineer case. referred to [facility]. spoke with Marcos, stated patient to be placed in [facility] for pickup by local mortuary. ayala catheter, central line, ET tube, and all other medcial equipment removed. patient placed in body bag, placed in [facility] per protocol.
--- NOTE | 2018-08-20 20:20 | NUR ---
Patient was escorted to [facility] with security. ID tags were placed on the patient's body bag and patient's toe.
--- NOTE | 2018-08-20 21:20 | NUR ---
Attempted to notify Jose Arnett of patient's status. Left voicemail for Jose Arnett to call [facility] when message is received.
--- NOTE | 2018-08-24 14:54 | NUR ---
Social Service Note: WEAVING MACHINE OPERATOR spoke with Mati Arnett ([phone]) from the [facility]; Mati states that she does not believe that pt had any mortuary arrangements in place; pt's family has not been involved in over 20 years. WEAVING MACHINE OPERATOR spoke with Radha at [facility] ([phone]); they can accept body and work on certificate and all proceedings. WEAVING MACHINE OPERATOR spoke with administration and they have given the approval for pt to be transported to [facility]. Radha has arranged for pt's body to be picked up today. KRISTI has alerted administration and security.
== END 2018-08-20 19:32 | disposition expired ==
LOC: SED 17:45
DX: I46.9 Cardiac arrest, cause unspecified (principal); A41.9 Sepsis, unspecified organism; R65.20 Severe sepsis without septic shock; J96.00 Acute respiratory failure, unspecified whether with hypoxia or hypercapnia; J18.9 Pneumonia, unspecified organism; I48.91 Unspecified atrial fibrillation; K21.9 Gastro-esophageal reflux disease without esophagitis; J44.1 Chronic obstructive pulmonary disease with (acute) exacerbation; I11.0 Hypertensive heart disease with heart failure; I50.9 Heart failure, unspecified; F03.90 Unspecified dementia, unspecified severity, without behavioral disturbance, psychotic disturbance, mood disturbance, and anxiety; Z79.899 Other long term (current) drug therapy
CPT/HCPCS: 36415; 71045; 80053; 82550; 83605; 84484; 85025; 85610; 85730; 87040; 92950; 93005; 94640; 96374; 96375; 99291; J2704; J7030; J7613